=== PATIENT | female | born 1960 | race Caucasian/White ===

== ENCOUNTER 2020-07-30 19:01 | Outpatient (REF) | payer OTHER, SELFPAY | END 2020-07-30 19:02 | disposition home or self-care (01) | LOC: HO.LNP 19:01 | PROVIDERS: Visit Provider Family Medicine | DX: Z20.822 Contact with and (suspected) exposure to COVID-19 (principal); R05 Cough | CPT/HCPCS: U0003; U0005 ==

== ENCOUNTER 2020-11-24 12:42 | Outpatient (REF) | payer OTHER, SELFPAY ==
[2020-11-24 13:53] LABS: MANUAL DIFF FLAG NO
[2020-11-24 13:59] LABS: Basophils Percent Auto 0.4 % (0-2); Eosinophils Absolute Auto 0.3 X10*3/uL (0.0-0.4); Eosinophils Percent Auto 2.7 % (0-4); Hematocrit 42.6 % (37-47); Hemoglobin 14.3 g/dl (12.0-16.0); Imm Gran Abs Auto 0.04 X10*3/uL (0.00-0.03); Imm Gran Pct Auto 0.4 % (0.0-0.4); Lymphocytes Absolute Auto 3.1 X10*3/uL (1.2-4.9); Lymphocytes Percent Auto 33.4 % (20-40); Mean Corpuscular HGB Conc 33.6 g/dl (31.0-35.0); Mean Corpuscular Volume 95.3 fL (80-98); Mean Platelet Volume 11.7 fL (9.4-12.3); Monocytes Absolute Auto 0.8 X10*3/uL (0.1-1.2); Neutrophils Absolute Auto 5.1 X10*3/uL (2.0-8.3); Neutrophils Percent Auto 55.1 % (45-73); Platelet Count 260 X10*3/uL (160-400); Red Blood Count 4.47 X10*6/uL (4.20-5.50); Red Cell Distribution Width 12.4 % (11.0-16.0); White Blood Count 9.3 X10*3/uL (4.8-10.8)
[2020-11-24 14:15] LABS: Alanine Aminotransferase 58 U/L (0-31); Albumin Level 4.4 g/dL (3.5-5.0); Alkaline Phosphatase 87 U/L (39-117); Anion Gap 11 (12-20); Aspartate Amino Transferase 33 U/L (5-31); Bilirubin Total 0.6 mg/dL (0.0-1.0); Blood Urea Nitrogen 19 mg/dL (9-16); Calcium 9.7 mg/dL (8.4-10.2); Carbon Dioxide 27 mmol/L (22-29); Chloride 107 mmol/L (96-108); Cholesterol 211 mg/dL; Estimated Glomerular Filt Rate > 60; Glucose Fasting 120 mg/dL (60-99); HDL Cholesterol 35 mg/dL; LDL Cholesterol Calculated 137 mg/dl; Potassium 4.2 mmol/L (3.3-5.1); Sodium 141 mmol/L (135-145); Triglycerides 198 mg/dL
[2020-11-24 14:38] LABS: TSH reflex Free T4 1.47 uIU/mL (0.32-4.0)
== END 2020-11-24 12:43 | disposition home or self-care (01) ==
LOC: HO.WFDLDS 12:42
PROVIDERS: Visit Provider Family Medicine
DX: Z00.00 Encounter for general adult medical examination without abnormal findings (principal)
CPT/HCPCS: 36415; 80053; 80061; 84443; 85025

== ENCOUNTER 2021-12-07 16:23 | Outpatient (REF) | payer OTHER, SELFPAY ==
[2021-12-08 12:57] LABS: Influenza A PCR NEGATIVE (Negative); Influenza B PCR NEGATIVE (Negative); Resp Syncy Virus RNA Qual PCR NEGATIVE (Negative); SARS COV2 PCR INHOUSE NEGATIVE (Negative)
== END 2021-12-07 16:24 | disposition home or self-care (01) ==
LOC: HO.LAB 16:23
PROVIDERS: Visit Provider Family Medicine
DX: J02.9 Acute pharyngitis, unspecified (principal); Z20.822 Contact with and (suspected) exposure to COVID-19
CPT/HCPCS: 0241U

== ENCOUNTER 2021-12-08 11:20 | Outpatient (REF) | payer OTHER, SELFPAY | END 2021-12-08 11:21 | disposition home or self-care (01) | LOC: HO.LNP 11:20 | PROVIDERS: Visit Provider Family Medicine | DX: Z13.89 Encounter for screening for other disorder (principal) ==

== ENCOUNTER 2021-12-10 11:17 | Outpatient (REF) | payer OTHER, SELFPAY ==
[2021-12-10 11:35] LABS: MANUAL DIFF FLAG NO
[2021-12-10 12:10] LABS: Basophils Absolute Auto 0.1 X10*3/uL (0.0-0.2); Basophils Percent Auto 0.3 % (0-2); Eosinophils Absolute Auto 0.1 X10*3/uL (0.0-0.4); Eosinophils Percent Auto 0.7 % (0-4); Hematocrit 42.4 % (37.0-47.0); Hemoglobin 14.5 g/dl (12.0-16.0); Imm Gran Abs Auto 0.09 X10*3/uL (0.00-0.03); Imm Gran Pct Auto 0.6 % (0.0-0.4); Lymphocytes Absolute Auto 2.4 X10*3/uL (1.2-4.9); Lymphocytes Percent Auto 16.4 % (20-40); Mean Corpuscular HGB Conc 34.2 g/dl (31.0-35.0); Mean Corpuscular Hemoglobin 32.3 pg (27.0-33.0); Mean Corpuscular Volume 94.4 fL (80.0-98.0); Mean Platelet Volume 10.5 fL (9.4-12.3); Monocytes Absolute Auto 1.4 X10*3/uL (0.1-1.2); Monocytes Percent Auto 9.8 % (2-11); Neutrophils Absolute Auto 10.5 x10*3/uL (2.0-8.3); Neutrophils Percent Auto 72.2 % (45-73); Platelet Count 292 X10*3/uL (160-400); Red Blood Count 4.49 X10*6/uL (4.20-5.50); Red Cell Distribution Width 12.3 % (11.0-16.0); White Blood Count 14.5 X10*3/uL (4.8-10.8)
[2021-12-10 12:18] LABS: Appearance Urine Cloudy; Color Urine Yellow; Glucose Urine UA Negative (Negative); Leukocyte Esterase Urine Negative (Negative); Nitrite Urine Negative (Negative); PH 6.5 (5.0-9.0); Specific Gravity - Urine 1.015 (1.005-1.025); Urine Blood Negative (Negative); Urine Ketones Negative (Negative); Urine Protein Trace mg/dL (Neg-Trace)
[2021-12-10 12:45] LABS: Alanine Aminotransferase 40 U/L (0-31); Albumin Level 4.3 g/dL (3.5-5.0); Alkaline Phosphatase 86 U/L (39-117); Anion Gap 17 (12-20); Aspartate Amino Transferase 27 U/L (5-31); Bilirubin Total 0.9 mg/dL (0.0-1.0); Blood Urea Nitrogen 11 mg/dL (9-16); Calcium 9.6 mg/dL (8.4-10.2); Carbon Dioxide 27 mmol/L (22-29); Chloride 100 mmol/L (96-108); Estimated Glomerular Filt Rate > 60; Glucose Random 122 mg/dL (60-115); Potassium 3.6 mmol/L (3.3-5.1); Sodium 140 mmol/L (135-145)
== END 2021-12-10 11:18 | disposition home or self-care (01) ==
LOC: HO.LAB 11:17
PROVIDERS: PCP Family Medicine; Visit Provider Family Medicine
DX: Z00.00 Encounter for general adult medical examination without abnormal findings (principal); R53.83 Other fatigue
CPT/HCPCS: 36415; 80053; 81003; 85025

== ENCOUNTER 2022-12-07 10:25 | Outpatient (AMB) | payer OTHER, SELFPAY ==
[2022-12-07 10:29] VITALS: BP 128/78; PULSE 79; RESP 14; TEMP 37.1; O2SAT 98; BMI 27.1
--- NOTE | 2022-12-07 10:29 | A.OFFPC_ITS ---
Vital Signs 12/07/22 10:29 Height 5 ft 4 in Weight 158 lb BMI 27.1 BP 128/78 Blood Pressure Location Lt brachial Position Sitting Respiration 14 Pulse 79 Pulse Source Pulse Oximeter Temp 98.7 F Temp Source Oral Pulse Oximetry (%) 98 Oxygen Delivery Method Room Air Intake Visit Reasons: f/u hypertension Intake Note: Patient is here for hypertension and she expresses she is under stress at home. Overnight Stocker Required: No Accompanied by: Self / Same As Patient Allergies erythromycin base Adverse Reaction (Mild, Verified 12/07/22 10:36) diarrhea Tobacco use date assessed: 12/07/22 Dental Screening Dental Screen Date: 12/07/22 Did you have a dental visit in the last 12 months?: Yes Did you have a dental problem in the last 6 months where you did not have access to dental care?: No Was dental information given to patient?: Patient has dentist HPI f/u hypertension HPI Details 62 y/o female presents to f/u hypertensi on. Blood pressure today 128/78. She is on amlodipine 5mg and lisinopril-HCTZ 20- 25mg daily. Pt reports ongoing stressors. She does not have a therapist. [facility] Medical History Anxiety Depression History of breast cancer Hypertension Surgical History H/O bilateral mastectomy History of cholecystectomy History of knee surgery History of tonsillectomy S/P lumpectomy of breast Family History Daughter Mental health disorder Breast cancer Sister Mental health disorder Breast cancer Lung cancer Myocardial infarction Father CAD (coronary artery disease) Myocardial infarction Mother Breast cancer Other Substance abuse Social History (Updated 12/07/22 @ 10:41 by Leah Callahan CMA) Household Members: Children Housing: House Are you a primary lawn care professional to a significant other at home: No Do you presently have visiting nurse or other home services: No 75 years or older and lives alone: No Alcohol intake: current Alcohol intake frequency: holidays/special occasions only Alcohol type: wine Patient Tobacco Use Status: Former Tobacco user Tobacco use type: Cigarette Cigarette Packs Per Day: 0.5 Cigarettes Per Day: 10 Years Smoked: 2 e-Cigarette/Vaping Use: Never Used Second Hand Smoke Exposure: No service: No Current occupational status: retired Current occupational exposures/hazards: No Sexual orientation: Unable to collect Gender identity: Unable to collect Cognitive needs: No Hearing needs: No Vision needs: No Review of Systems Const Denies chills, Denies fatigue, Denies fever(s), Denies headache(s) and Denies weakness ENT Denies dizziness and Denies headache(s) Card Denies chest pain, Denies lightheadedness, Denies dyspnea and Denies other (Palpitations) Resp Denies cough, Denies dyspnea, Denies wheezing and Denies other ( shortness of breath) Musc Denies numbness and Denies tingling Neuro Denies dizziness, Denies headache(s), Denies numbness, Denies tingling, Denies paresthesias and Denies weakness Psych Reports anxiety and Reports depression Endo Denies fatigue Aller/Immun Denies wheezing Physical exam (Primary Care) Vital Signs: Last Vital Signs Temp 98.7 F 12/07/22 10:29 Pulse 79 12/07/22 10:29 Resp 14 12/07/22 10:29 BP 128/78 12/07/22 10:29 Pulse Ox 98 12/07/22 10:29 Oxygen Delivery Method Room Air 12/07/22 10:29 BMI result Body Mass Index 27.1 Tobacco/Smoking Status: Tobacco use Status Tobacco use date assessed 12/07/22 12/07/22 10:41 Patient Tobacco Use Status Former Tobacco user 12/07/22 10:41 Tobacco use type Cigarette 12/07/22 10:41 e-Cigarette/Vaping Use Never Used 12/07/22 10:41 Const General: no acute distress and well developed Nutritional Appearance: well nourished Orientation/consciousness: patient oriented x3 HENMT Head: Yes normocephalic and Yes atraumatic Eyes General: appearance normal, both eyes and all related structures Pupils: Equal, round and reactive pupils present EOM: EOMs intact bilaterally Resp Effort & Inspection: normal respiratory effort Auscultation: clear to auscultation bilaterally Cardio Rate: regular rate Rhythm: regular rhythm Heart sounds: S1 normal heart sound present, S2 normal heart sound present, no gallops, no murmurs and no rubs Neuro General: patient oriented x3 and gait normal Cranial nerves: Yes Equal, round and reactive pupils present Psych Affect: normal affect Assessment and Plan Assessment & Plan (1) Hypertension: Comment: Goal is less than 130/80. Ideally less than 120/70. Patient has thoracic aneurysm at 4.1 cm Code(s): I10 - Essential (primary) hypertension Plan: Blood?pressure?less?than?130/80?and?patie nt?has?a?history?of?thoracic?aortic?aneurysm?at?4.1?cm.??[place]?goal?is?less?than ?120/70 Will?add?a?small?amount?of?metoprolol?which?may?also?help?with?her?anxiety?and?r esultant?palpitations. Will?follow-up?in?a?month (2) Thoracic aortic aneurysm: Code(s): I71.20 - Thoracic aortic aneurysm, without rupture, unspecified Plan: As?above,?ideally?aiming?for?a?blood?pressure?less?than?120/70 Continue?to?follow-up?with?Cardiology?as?recommended (3) Depression with anxiety: Code(s): F41.8 - Other specified anxiety disorders Plan: Some?anxiety?and?depression.??She?notes?that?her?anx iety?has?been?worse?lately?as?her?daughter?passed?away?and?today?is?her?birthday . She?also?has?stressors?as?she?is?taking?care?of?the?young?children. We?discussed?consideration?of?a?therapist?from?whi ch?she?has?benefit?from?in?the?past.??She?says?she?will?think?about?this. (4) Palpitations: Code(s): R00.2 - Palpitations Plan: Will?trial?a?low?dose?of?metoprolol?which?may?help?with?palpitations?which?are?l ikely?secondary?to?her?anxiety. Medications: New metoprolol succinate ER 12.5 mg (1/2 x 25 mg) PO DAILY 15 tabs 1RF 30 days Coding Level of Care Code Est Pt Level 4 (90039) Diagnoses Hypertension I10 Thoracic aortic aneurysm I71.20 Depression with anxiety F41.8 Palpitations R00.2
== END 2022-12-07 11:19 | disposition home or self-care (01) ==
PROVIDERS: PCP Family Medicine; Visit Provider Family Medicine
DX: I10 Essential (primary) hypertension (principal); I71.20 Thoracic aortic aneurysm, without rupture, unspecified; F41.8 Other specified anxiety disorders; R00.2 Palpitations
CPT/HCPCS: 99214

== ENCOUNTER 2022-12-23 10:31 | Outpatient (AMB) | payer OTHER, SELFPAY ==
[2022-12-23 10:35] VITALS: BP 130/80; PULSE 77; O2SAT 98; BMI 25.6
--- NOTE | 2022-12-23 10:35 | A.OFFPC_ITS ---
Vital Signs 12/23/22 10:35 Height 5 ft 4 in Weight 149 lb BMI 25.6 BP 130/80 Blood Pressure Location Lt brachial Pulse 77 Pulse Source Pulse Oximeter Pulse Oximetry (%) 98 Oxygen Delivery Method Room Air Intake Visit Reasons: f/u hypertension Intake Note: Patient is here for hypertension today. Allergies erythromycin base Adverse Reaction (Mild, Verified 12/23/22 10:37) diarrhea Tobacco use date assessed: 12/23/22 HPI f/u hypertension HPI Details 62 y/o female presents to f/u hypertensi on with hx of thoracic aortic aneurysm at 4.1cm. Also f/u anxiety/depression with some palpitations. Had added metoprolol which may also help with palpitations and anxiety. Goal less than 120/70 according to Cardiology. Blood pressure today 118/68. She is on lisinopril-HCTZ 20-25mg, amlodipine 5mg and metoprolol 12.5mg daily. Blood pressure on second check is 130/80. Pt reports anxiety is still high. She does not have a therapist and states she does not have time for one. She notes she has not been getting much palpitations. She is on sertraline 50mg daily. [facility] Medical History History of breast cancer Anxiety Depression Hypertension Surgical History S/P lumpectomy of breast H/O bilateral mastectomy History of knee surgery History of cholecystectomy History of tonsillectomy Family History Daughter Mental health disorder Breast cancer Sister Mental health disorder Breast cancer Lung cancer Myocardial infarction Father CAD (coronary artery disease) Myocardial infarction Mother Breast cancer Other Substance abuse Social History Household Members: Children Housing: House Are you a primary care transitions manager to a significant other at home: No Do you presently have visiting nurse or other home services: No 75 years or older and lives alone: No Alcohol intake: current Alcohol intake frequency: holidays/special occasions only Alcohol type: wine Patient Tobacco Use Status: Former Tobacco user Tobacco use type: Cigarette Cigarette Packs Per Day: 0.5 Cigarettes Per Day: 10 Years Smoked: 2 e-Cigarette/Vaping Use: Never Used Second Hand Smoke Exposure: No service: No Current occupational status: retired Current occupational exposures/hazards: No Sexual orientation: Unable to collect Gender identity: Unable to collect Cognitive needs: No Hearing needs: No Vision needs: No Review of Systems Const Denies chills, Denies fatigue, Denies fever(s), Denies headache(s) and Denies weakness ENT Denies dizziness and Denies headache(s) Card Denies chest pain, Denies lightheadedness, Denies dyspnea and Denies other (Palpitations) Resp Denies cough, Denies dyspnea, Denies wheezing and Denies other ( shortness of breath) Musc Denies numbness and Denies tingling Neuro Denies dizziness, Denies headache(s), Denies numbness, Denies tingling, Denies paresthesias and Denies weakness Psych Reports anxiety and Denies depression Endo Denies fatigue Aller/Immun Denies wheezing Physical exam (Primary Care) Vital Signs: Last Vital Signs Pulse 77 12/23/22 10:35 BP 118/68 12/23/22 10:35 Pulse Ox 98 12/23/22 10:35 Oxygen Delivery Method Room Air 12/23/22 10:35 BMI result Body Mass Index 25.6 Tobacco/Smoking Status: Tobacco use Status Tobacco use date assessed 12/23/22 12/23/22 10:41 Patient Tobacco Use Status Former Tobacco user 12/23/22 10:41 Tobacco use type Cigarette 12/23/22 10:41 e-Cigarette/Vaping Use Never Used 12/23/22 10:41 Const General: no acute distress and well developed Nutritional Appearance: well nourished Orientation/consciousness: patient oriented x3 HENMT Head: Yes normocephalic and Yes atraumatic Eyes General: appearance normal, both eyes and all related structures Pupils: Equal, round and reactive pupils present EOM: EOMs intact bilaterally Resp Effort & Inspection: normal respiratory effort Auscultation: clear to auscultation bilaterally Cardio Rate: regular rate Rhythm: regular rhythm Heart sounds: S1 normal heart sound present, S2 normal heart sound present, no gallops, no murmurs and no rubs Neuro General: patient oriented x3 and gait normal Cranial nerves: Yes Equal, round and reactive pupils present Psych Affect: normal affect Office Procedures Flu Questionnaire Does the patient have a severe egg allergy?: No Does the patient have severe life threatening allergies?: No Does the patient have a fever or illness today?: No Has the patient ever had Guillain-[place] Syndrome?: No Has the patient ever had any past reaction to a flu shot?: No Immunizations flu vacc [id number] 6mos up(PF) 60 mcg(15 mcgx4)/0.5 mL IM syringe Performing Provider: Douglas Bain MD Performing Location: [facility] Family Medicine Documented (not given) by: Jovita Quiroga CMA on 12/23/22 10:50 Reason Not Given: Received Previously Assessment and Plan Assessment & Plan (1) Hypertension: Comment: Goal is less than 130/80. Ideally less than 120/70. Patient has thoracic aneurysm at 4.1 cm Code(s): I10 - Essential (primary) hypertension Plan: Blood? pressure?today?was?130/80?and?Cardiology?is?recommending?that?she?keep?it?ideall y?below?120/70?due?to?aortic?aneurysm Will?increase?her?metoprolol?succinate?from?12.5?mg?daily?to?12.5?mg?b.i.d. She?notes?this?is?already?helping?with?palpitations (2) Thoracic aortic aneurysm: Code(s): I71.20 - Thoracic aortic aneurysm, without rupture, unspecified Plan: Follow-up?with?Cardiology (3) Depression with anxiety: Code(s): F41.8 - Other specified anxiety disorders Plan: She?is?on?sertraline?50?mg?daily. Has?had?significant?stressors?including?taking?care?of?her?children?and?her?s ister Offer?to?increase?sertraline?to?75?mg?daily?but?patient?declines?for?now. Has?difficulty?finding?the?time?for?a?therapist (4) Palpitations: Code(s): R00.2 - Palpitations Plan: Improved?on?metoprolol Orders: Orders Influenza [id number] Immunization Today Z23 - Encounter for immunization Medications: Changed From metoprolol succinate ER 12.5 mg (1/2 x 25 mg) PO DAILY 30 days 15 tabs 1RF To metoprolol succinate ER 12.5 mg (1/2 x 25 mg) PO BID 30 days 30 tabs 1RF Coding Level of Care Code Est Pt Level 4 (49667) Diagnoses Hypertension I10 Thoracic aortic aneurysm I71.20 Depression with anxiety F41.8 Palpitations R00.2
== END 2022-12-23 11:17 | disposition home or self-care (01) ==
PROVIDERS: PCP Family Medicine; Visit Provider Family Medicine
DX: I10 Essential (primary) hypertension (principal); I71.20 Thoracic aortic aneurysm, without rupture, unspecified; F41.8 Other specified anxiety disorders; R00.2 Palpitations
CPT/HCPCS: 99214

== ENCOUNTER 2023-03-25 10:52 | Outpatient (AMB) | payer OTHER, SELFPAY ==
--- NOTE | 2023-03-25 10:56 | MHC.PC.OV ---
Vital Signs 03/25/23 10:57 Height 5 ft 4 in Weight 146 lb 8 oz BMI 25.1 BP 139/85 Blood Pressure Location Lt brachial Pulse 61 Pulse Oximetry (%) 98 Oxygen Delivery Method Room Air Intake Visit Reasons: f/u hypertension, anxiety/depression Intake Note: Patient is here to follow up on hypertension, anxiety, and depression. Allergies erythromycin base Adverse Reaction (Mild, Verified 03/25/23 10:59) diarrhea Tobacco use date assessed: 03/25/23 Dental Screening Dental Screen Date: 03/25/23 Did you have a dental visit in the last 12 months?: Yes Did you have a dental problem in the last 6 months where you did not have access to dental care?: No Was dental information given to patient?: Patient has dentist HPI f/u hypertension, anxiety/depression HPI Details 62 y/o female presents to f/u hypertension, anxiety/depression with palpitations. Hx of thoracic aortic aneurysm. Pt reports mood feels a bit more steady/stable but notes ongoing stressors with her kids. [facility] Medical History History of breast cancer Anxiety Depression Hypertension Surgical History S/P lumpectomy of breast H/O bilateral mastectomy History of knee surgery History of cholecystectomy History of tonsillectomy Family History Daughter Mental health disorder Breast cancer Sister Mental health disorder Breast cancer Lung cancer Myocardial infarction Father CAD (coronary artery disease) Myocardial infarction Mother Breast cancer Other Substance abuse Social History Household Members: Children Housing: House Are you a primary acute care physician to a significant other at home: No Do you presently have visiting nurse or other home services: No 75 years or older and lives alone: No Alcohol intake: current Alcohol intake frequency: holidays/special occasions only Alcohol type: wine Patient Tobacco Use Status: Former Tobacco user Tobacco use type: Cigarette Cigarette Packs Per Day: 0.5 Cigarettes Per Day: 10 Years Smoked: 2 e-Cigarette/Vaping Use: Never Used Second Hand Smoke Exposure: No service: No Current occupational status: retired Current occupational exposures/hazards: No Sexual orientation: Unable to collect Gender identity: Unable to collect Cognitive needs: No Hearing needs: No Vision needs: No Questionnaire PHQ-9 Over the last 2 weeks, how often have you been bothered by any of the following problems? 1. Little interest or pleasure in doing things: not at all 2. Feeling down, depressed, or hopeless: not at all 3. Trouble falling or staying asleep, or sleeping too much: not at all 4. Feeling tired or having little energy: not at all 5. Poor appetite or overeating: not at all 6. Feeling bad about yourself - or that you are a failure or have let yourself or your family down: not at all 7. Trouble concentrating on things, such as reading the newspaper or watching television: not at all 8. Moving or speaking so slowly that other people could have noticed. Or the opposite - being so fidgety or restless that you have been moving around a lot more than usual: not at all 9. Thoughts that you would be better off or of hurting yourself in some way: not at all Total score: 0 Depression Screening Interpretation: Negative Depression Screening Done: Yes 64196 - PHQ-9 Billing: Yes Source: Developed by Drs. Jhony Ann, Yessica Roldan, Rafael Camacho and colleagues, with an educational arian from [employer]. Thrive Questionnaire Date Thrive assessed: 03/25/23 I am a: Patient What is your living situation today?: I have a steady place to live Within the past 12 months, did the food you bought not last and you didn't have the money to get more?: Never true Within the past 12 months, did you worry whether your food would run out before you got money to buy more?: Never true Do you have trouble paying for medicines?: No Do you have trouble getting transportation to medical appointments?: No Do you have trouble paying your heating and electricity bill?: No Do you have trouble taking care of your child, family member or friend?: No Do you have trouble with day-to-day activities such as bathing, preparing meals, shopping, managing finances, etc.?: No Are you currently unemployed and looking for a job?: No Are you interested in more education?: No THRIVE Score: 0 AUDIT C Alcohol Use Questionnaire (AUDIT-C) 1. How often do you have a drink containing alcohol?: Monthly or less 2. How many drinks containing alcohol do you have on a typical day when you are drinking?: 1 or 2 3. How often do you have six or more drinks on one occasion?: Never Total Score: 1 INA-7 AMB Questionnaire INA-7 Date INA - 7 assessed: 03/25/23 Feeling nervous, anxious, or on edge: 1 = Several days Not being able to stop or control worryin = Several days Worrying too much about different things: 1 = Several days (Her children) Trouble relaxin = Not at all Being so restless that it is hard to sit still: 0 = Not at all Becoming easily annoyed or irritable: 0 = Not at all Feeling afraid as if something awful might happen: 0 = Not at all Total INA-7 score (0-4 normal; 5-9 mild; 10-14 moderate; 15-21 severe): 3 Source: Developed by Drs. Jhony Ann, Yessica Roldan, Rafael Camacho and colleagues, with an educational arian from [employer]. INA-7 Assessment Billing INA-7 Assessment Tool: INA-7 Assessment 07533 Physical exam (Primary Care) Vital Signs: Last Vital Signs Pulse 61 03/25/23 10:57 BP 139/85 03/25/23 10:57 Pulse Ox 98 03/25/23 10:57 Oxygen Delivery Method Room Air 03/25/23 10:57 BMI result Body Mass Index 25.1 Tobacco/Smoking Status: Tobacco use Status Tobacco use date assessed 03/25/23 03/25/23 11:00 Patient Tobacco Use Status Former Tobacco user 03/25/23 10:59 Tobacco use type Cigarette 03/25/23 10:59 e-Cigarette/Vaping Use Never Used 03/25/23 10:59 PHQ-9: PHQ-9 Score PHQ-9: Total score 0 03/25/23 11:15 Depression Screening Interpretation: Negative Thrive Assessment: Date of Thrive Assessment Date Thrive assessed 03/25/23 03/25/23 11:10 Assessment and Plan Assessment & Plan (1) Hypertension: Comment: Goal is less than 130/80. Ideally less than 120/70. Patient has thoracic aneurysm at 4.1 cm Code(s): I10 - Essential (primary) hypertension Plan: Blood?pressure?is?still?too?high?for?patient?with?thoracic?aneurysm; recommended?goal?is?less?than?120/70 She?is?now?on?metoprolol?daily?dose?of?25?mg.??Heart?rate?is?at?lower?end?of?normal. Also?taking?lisinopril-hydrochlorothiazide Had?prescribed?amlodipine?5?mg?daily?which?was?on?her?med?list?but?she?says?she?has?not?been?taking?this. She?will?start?amlodipine?5?mg?daily?and?continue?her?other?medications?as?prescribed.??Call?for?any?problems (2) Thoracic aortic aneurysm: Code(s): I71.20 - Thoracic aortic aneurysm, without rupture, unspecified Plan: Currently?stable Blood?pressure?is?too?high?and?we?are?addressing?this-see?above Follow-up?with?Cardiology?as?recommended (3) Depression with anxiety: Code(s): F41.8 - Other specified anxiety disorders Plan: Patient?notes?that?mood?is?improving. Continue?sertraline (4) Screening for colon cancer: Code(s): Z12.11 - Encounter for screening for malignant neoplasm of colon Plan: Patient?notes?that?she?is?overdue?for?colonoscopy?and?history?of?polyps?with?recommended?follow-up?of?3?years. Referred?to?GI (5) Colon polyp: Code(s): K63.5 - Polyp of colon Plan: As?above,?referred?to?GI Orders: Referrals Gastroenterology Referral K63.5 - Polyp of colon, Z12.11 - Encounter for screening for malignant neoplasm of colon Medications: Refilled metoprolol succinate ER 12.5 mg (1/2 x 25 mg) PO BID 30 tabs 1RF 30 days amlodipine 5 mg PO DAILY 30 tabs 1RF 30 days lisinopril-hydrochlorothiazide 20-25 mg 1 tab PO DAILY 90 tabs 3RF 90 days sertraline 50 mg PO DAILY 90 tabs 2RF 90 days Coding Level of Care Code Est Pt Level 4 (27297) Diagnoses Hypertension I10 Thoracic aortic aneurysm I71.20 Depression with anxiety F41.8 Screening for colon cancer Z12.11 Colon polyp K63.5 Additional Codes INA-7 Assessment Billing - INA-7 Assessment Tool: INA-7 Assessment [id number] ([id number])
[2023-03-25 10:57] VITALS: BP 139/85; PULSE 61; O2SAT 98; BMI 25.1
== END 2023-03-25 11:36 | disposition home or self-care (01) ==
PROVIDERS: PCP Family Medicine; Visit Provider Family Medicine
DX: I10 Essential (primary) hypertension (principal); I71.20 Thoracic aortic aneurysm, without rupture, unspecified; F41.8 Other specified anxiety disorders; Z12.11 Encounter for screening for malignant neoplasm of colon; K63.5 Polyp of colon
CPT/HCPCS: 99214

== ENCOUNTER 2023-05-04 12:41 | Outpatient (AMB) | payer OTHER, SELFPAY ==
--- NOTE | 2023-05-04 12:52 | MHC.OFFVIS ---
Intake Vital Signs 05/04/23 12:54 Height 5 ft 4 in Weight 145 lb 8.081 oz BMI 25.0 BP 125/77 Blood Pressure Location Lt brachial Position Sitting Pulse 77 Pulse Source Pulse Oximeter Pulse Oximetry (%) 99 Oxygen Delivery Method Room Air Intake Visit Reasons: Pegram screening Information Interpreted: non-clinical & clinical Accompanied by: Self / Same As Patient Allergies erythromycin base Adverse Reaction (Mild, Verified 05/04/23 12:55) diarrhea HPI Pegram screening HPI Details 62 year old? female with past medical history of hypertension, lymphadenopathy, celiac diagnosed on upper endoscopy, gastroparesis, history of cholecystectomy, history of breast CA, status post bilateral mastectomy is here today for pre colonoscopy screening.? Patient was sent to us by her PCP.? Patient had upper endoscopy and colonoscopy done in the past. Colonoscopy was done almost 10 years ago. Patient was told that she had 1 polyp. Patient was supposed to return for colonoscopy every 3 years, however patient reports that her daughter and then soon after her and now she is taking care of her 2 grandchildren. Patient does admit to do under a lot of stress. Patient reports occasional palpitations, shortness or breath and chest pressure. She is followed by [facility] and had echo last year that showed dilation of ascending aorta up to 4.3 cm. Patient also has thoracic aorta aneurysm that has been watched. Patient wishes to change her care to [place] so all her providers are in his same system. Will refer to Cardiology for risk stratification before the procedure. Patient has repeat echo here at [facility] in June. Patient reports that when she had her last endoscopy she was diagnosed with celiac disease and gastroparesis. Patient is on gluten free diet.? Denies any family history of gastrointestinal disease or cancer.? Denies history of difficulty with sedation or anesthesia in the past.? Negative for history of sleep apnea.? Denies any history of cardiac, renal, pulmonary, or hepatic disease.?? No history of infectious? diseases like hepatitis A, B, C, HIV or tuberculosis.? Patient is not on any anticoagulation therapy. [facility] Medical History (Updated 05/04/23 @ 13:09 by Ursula Peacock [facility]) Celiac disease History of breast cancer Anxiety Depression Hypertension Surgical History S/P lumpectomy of breast H/O bilateral mastectomy History of knee surgery History of cholecystectomy History of tonsillectomy Family History Daughter Mental health disorder Breast cancer Sister Mental health disorder Breast cancer Lung cancer Myocardial infarction Father CAD (coronary artery disease) Myocardial infarction Mother Breast cancer Other Substance abuse Social History Household Members: Children Housing: House Are you a primary field care coordinator to a significant other at home: No Do you presently have visiting nurse or other home services: No 75 years or older and lives alone: No Alcohol intake: current Alcohol intake frequency: holidays/special occasions only Alcohol type: wine Patient Tobacco Use Status: Former Tobacco user Tobacco use type: Cigarette Cigarette Packs Per Day: 0.5 Cigarettes Per Day: 10 Years Smoked: 2 e-Cigarette/Vaping Use: Never Used Second Hand Smoke Exposure: No service: No Current occupational status: retired Current occupational exposures/hazards: No Sexual orientation: Unable to collect Gender identity: Unable to collect Cognitive needs: No Hearing needs: No Vision needs: No Review of Systems Const Denies weight gain and Denies weight loss ENT Reports no additional complaints, Denies dysphagia and Denies odynophagia Card Reports no additional complaints Resp Reports no additional complaints GI Denies abdominal pain, Denies belching, Denies melena, Denies bloating, Denies change in bowel habits, Denies dysphagia, Denies excessive flatus, Denies dyspepsia, Reports heartburn (Occasional), Denies diarrhea, Denies loose stools, Denies nausea, Denies odynophagia and Denies vomiting Musc Reports no additional complaints Neuro Reports no additional complaints Psych Reports no additional complaints Endo Reports no additional complaints Physical Exam Const General: healthy appearing, no acute distress and well developed Nutritional Appearance: well nourished Orientation/consciousness: patient oriented x3 Resp Effort & Inspection: normal respiratory effort, able to speak in complete sentences, no tracheal deviation and symmetric chest movement Auscultation: clear to auscultation bilaterally Cardio Rate: regular rate GI Inspection: Yes normal to inspection and No distended Palpation (GI): Soft to palpation, not firm, nontender and No hepatosplenomegaly present Auscultation: normal bowel sounds General: Yes no CVA tenderness Back/Spine/Pelvis Back: no CVA tenderness Skin General skin exam: elasticity normal, turgor normal and dry skin Neuro General: patient oriented x3 Psych Appearance: grossly normal Mental Status: mental status grossly normal Assessment & Plan Assessment & Plan (1) Screening for colon cancer: Code(s): Z12.11 - Encounter for screening for malignant neoplasm of colon (2) Celiac disease: Code(s): K90.0 - Celiac disease (3) Palpitations: Code(s): R00.2 - Palpitations (4) GERD (gastroesophageal reflux disease): Code(s): K21.9 - Gastro-esophageal reflux disease without esophagitis Qualifiers: Esophagitis presence: esophagitis presence not specified Qualified Code(s): K21.9 - Gastro-esophageal reflux disease without esophagitis Plan Patient reports occasional acid reflux and she uses Tums. History of celiac disease. Patient is on a very strict gluten free diet will send for transglutaminase to see adherence. Will send patient for upper endoscopy. Denies any issues with anesthesia in the past.? Denies any history of sleep apnea.? No history infectious diseases in the past or present.? Not on any anticoagulation therapy.? No family of colon cancer.? Patient denies melena, hematochezia, unintentional weight loss or ribbon like stools.? Referral to Cardiology for risk stratification before procedure. Patient has echo scheduled for June. Appointment with Dr. Conteh was scheduled for July. Discussed at length the pre-procedure,? prep, diet & medications as well as what to expect prior, during and after the procedure.?? Stressed the importance of good bowel prep. ?Recommended the use of Vaseline or Calmoseptine OTC & baby wipes with bowel movements to promote comfort.? ?Patient verbalizes understanding and agrees to plan of care.? She was given the opportunity to ask questions and all questions answered.? We will see her after the procedure.? Orders: Orders Transglutaminase Ab IgG Today R10.9 - Unspecified abdominal pain Transglutaminase IgA Today R10.9 - Unspecified abdominal pain Referrals Cardiology Referral Z01.810 - Encounter for preprocedural cardiovascular examination Medications: New bisacodyl (Dulcolax (bisacodyl)) take 4 tabs at noon the day before your colonoscopy 20 mg (4 x 5 mg) PO ONCE 1 day 4 tabs 0RF Z12.11 - Encounter for screening for malignant neoplasm of colon polyethylene glycol 3350 (Miralax) As directed by gastroenterology department at [facility] 238 grams PO ONCE 238 grams 0RF Z12.11 - Encounter for screening for malignant neoplasm of colon Coding Level of Care Code New Pt Level 4 (93626) Diagnoses Screening for colon cancer Z12.11 Celiac disease K90.0 Palpitations R00.2 Gastroesophageal reflux disease, unspecified whether esophagitis present K21.9 Esophagitis presence: esophagitis presence not specified Time Spent (min) 45 Comment 30 minutes spent with patient and additional 15 minutes spent reviewing her records
[2023-05-04 12:54] VITALS: BP 125/77; PULSE 77; O2SAT 99; BMI 25.0
== END 2023-05-04 13:42 | disposition home or self-care (01) ==
PROVIDERS: PCP Family Medicine; Visit Provider Nurse Practitioner Family
DX: Z12.11 Encounter for screening for malignant neoplasm of colon (principal); K90.0 Celiac disease; R00.2 Palpitations; K21.9 Gastro-esophageal reflux disease without esophagitis; Z01.818 Encounter for other preprocedural examination
CPT/HCPCS: 99204

== ENCOUNTER → 2023-05-04 12:41 | Outpatient (BNVA) | payer OTHER, SELFPAY | PROVIDERS: PCP Family Medicine; Visit Provider Nurse Practitioner Family | DX: Z12.11 Encounter for screening for malignant neoplasm of colon (principal); K90.0 Celiac disease; K21.9 Gastro-esophageal reflux disease without esophagitis; R00.2 Palpitations | CPT/HCPCS: 99202 ==

== ENCOUNTER → 2023-06-09 12:51 | Outpatient (REF) | payer OTHER, SELFPAY ==
--- NOTE | 2023-06-09 12:54 | CA_ITS ---
Transthoracic Echocardiogram Patient (Last, First, Middle): Sierra Flowers, Gender: Female Date of : 1960 Age: 63 Procedure Date: 06/09/2023 Procedure Type: Transthoracic Echocardiogram Location: OP Height: 162.56 cm Weight: 65.77 kg BSA: 1.71 m2 Heart Rate: 60 bpm BP: 108 / 70 mmHg Double Spindle Shaper Operator: SPENCER Referring MD: Douglas Bain MD Symptoms: I71.20 - Thoracic aortic aneurysm, without rupture, unspecified Study Quality: Adequate ECG Rhythm: Sinus Conclusions: - The left ventricular systolic function is normal. The calculated ejection fraction is 63% by biplane method. - No obvious valvular pathology seen on this study. - There is mild dilatation of the ascending aorta measuring 3.80 cm. Findings Left Ventricle Normal left ventricular cavity size. The left ventricular systolic function is normal. The calculated ejection fraction is 63% by biplane method. There is no evidence of regional wall motion abnormalities. Diastolic function is normal for age. There is mild septal asymmetric hypertrophy. LV peak GLS 18.8%. Right Ventricle Normal right ventricular cavity size and systolic function. Atria Both atria are normal in size. Aortic Valve There is a normal trileaflet aortic valve. There is no aortic valve stenosis. There is no aortic valve regurgitation. Mitral Valve The mitral valve appears normal. There is no mitral valve regurgitation. There is no mitral valve stenosis. Pulmonic Valve The pulmonic valve is likely normal. Tricuspid Valve There is mild tricuspid valve regurgitation. There is no evidence of pulmonary hypertension. Great Vessels The aortic arch is normal in size. There is mild dilatation of the ascending aorta measuring 3.80 cm. Venous The inferior vena cava is normal in size and collapses greater than 50% with inspiration. Pericardium/Pleural There is no evidence of pericardial effusion. Prior Study Comparison No prior study available for comparison. Recommendations, Care & Conclusions No obvious valvular pathology seen on this study. Measurements 2D Linear Measurements IVSd: 1.07 0.6-0.9/0.6-1.0 cm LVIDd: 3.55 3.9-5.3/4.2-5.9 cm LVIDd Index: 2.08 2.4-3.2/2.2-3.1 cm/m2 LVIDs: 1.75 2.0-3.6 cm LVPWd: 0.99 0.7-1.1 cm LA Diam: 2.80 2.7-3.8/3.0-4.0 cm LAIDs Index: 1.64 1.5-2.3 cm/m2 LV Mass: 137.39 67-162/88-224 g LV Mass Index: 80.34 43-95/49-115 g/m2 LVOT Diam: 1.90 3.0+(-)1.3 cm 2D Systolic Function EF 4C: 67.30 >55% EF 2C: 58.50 >55% EF BiP: 63.30 >55% Mitral Valve MV Pk E: 0.92 MV PK A: 0.79 MV Decel Time: 268.00 E/A: 1.20 E'Lateral: 10.00 E'Medial: 4.90 E/E' Med: 18.70 E/E' Lat: 9.20 PHT: 78.00 MVA PHT: 2.82 Decel [place]: 3.42 Aortic Valve AoV Pk Allen: 1.30 AoV Mn Allen: 0.92 AoV VTI: 0.28 AoV Pk Grad: 7.00 Aov Mn Grad: 4.00 ZOHREH Cont.VTI: 2.42 LVOT LVOT Pk Allen: 1.09 LVOT Mn Allen: 0.73 LVOT VTI: 0.24 LVOT Pk Grad: 5.00 LVOT Mn Grad: 3.00 LVOT Diam: 1.90 LVOT Area: 2.84 Diastolic Function MV Pk E: 0.92 MV Pk A: 0.79 E/A: 1.20 E'Medial: 4.90 E/E' Med: 18.70 E' Laterial: 10.00 E/E' Lat: 9.20 Right Ventricle TAPSE (mm): 18.70 TVS' Allen: 11.30 Tricuspid Valve TR Pk Allen: 1.94 TR Pk Grad: 15.00 RA Press: 3.00 RVSP: 18.00 Great Vessels Aorta Sinus of Valsalva: 3.30 2.0-3.5 cm Ao Asc: 3.80 2.1-3.4 cm Ao Arch: 2.90 Pulmonary Valve PV Pk Allen: 0.81 Peak PV Grad: 3.00 Updated in Other Vendor System with Status of Final Jonas Painter MD electronically signed on 06/10/2023 10:46:31 AM with status of Final
== END ==
LOC: HO.CARD 12:51
PROVIDERS: PCP Family Medicine; Visit Provider Family Medicine
DX: I71.20 Thoracic aortic aneurysm, without rupture, unspecified (principal); I10 Essential (primary) hypertension
CPT/HCPCS: 93306; 93356

== ENCOUNTER → 2023-06-09 12:54 | Outpatient (BNV) | payer OTHER, SELFPAY | PROVIDERS: PCP Family Medicine; Visit Provider Internal Medicine | DX: I71.21 Aneurysm of the ascending aorta, without rupture (principal); I36.1 Nonrheumatic tricuspid (valve) insufficiency | CPT/HCPCS: 93306; 93356 ==

== ENCOUNTER 2023-07-18 14:03 | Outpatient (AMB) | payer OTHER, SELFPAY ==
--- NOTE | 2023-07-18 14:12 | MHC.OFFVIS ---
Vital Signs 07/18/23 14:14 Height 5 ft 4 in Weight 147 lb 11.355 oz BMI 25.4 BP 120/70 Blood Pressure Location Lt brachial Position Sitting Pulse 60 Intake Visit Reasons: pre-op- colonoscopy clearance Intake Note: Pre-op clearnce colonscopy with ekg feeling good Senior Pensions Administrator Required: No Allergies erythromycin base Adverse Reaction (Mild, Verified 05/04/23 12:55) diarrhea Medication List - Last Reconciled 07/18/23 by Farhan Conteh MD amlodipine 5 mg PO DAILY 30 days bisacodyl (Dulcolax (bisacodyl)) 20 mg (4 x 5 mg) PO ONCE 1 day blood pressure monitor Automatic, Digital. Dx: I10. Daily As directed, 999 days/lifetime estradiol 10 mcg vaginal ONCE ibuprofen 800 mg PO TID 30 days lisinopril-hydrochlorothiazide 20-25 mg 1 tab PO DAILY 90 days metoprolol succinate ER 25 mg PO ONCE polyethylene glycol 3350 (Miralax) 238 grams PO ONCE sertraline 50 mg PO DAILY 90 days HPI Comments Details: Thank you for referring Sierra in cardiology consultation today for management of thoracic aortic aneurysm and hypertension. She is a pleasant 63-year-old female who on echocardiogram last year at an outside facility was noted to have mild thoracic aortic aneurysm at 4.3 cm. She also has over the last few years difficult control blood pressure since her 's health issues. Since then she has been gradually uptitrate to her current regimen and a blood pressures as has been very well controlled. She says she does good with her diet and also exercise on regular basis although does not run anymore. Strong family history for premature coronary artery disease on father's side and 2 of her sisters also had heart issues as per her. She does get exertional shortness of breath but no exertional chest pain. No orthopnea, PND, leg edema. No prolonged palpitations irregular heartbeats. She takes all her medications regularly. She is planned to undergo colonoscopy in near future which is considered low risk procedure. [facility] Medical History Celiac disease History of breast cancer Anxiety Depression Hypertension Surgical History S/P lumpectomy of breast H/O bilateral mastectomy History of knee surgery History of cholecystectomy History of tonsillectomy Family History Daughter Mental health disorder Breast cancer Sister Mental health disorder Breast cancer Lung cancer Myocardial infarction Father CAD (coronary artery disease) Myocardial infarction Mother Breast cancer Other Substance abuse Social History Household Members: Children Housing: House Are you a primary career services director to a significant other at home: No Do you presently have visiting nurse or other home services: No 75 years or older and lives alone: No Alcohol intake: current Alcohol intake frequency: holidays/special occasions only Alcohol type: wine Patient Tobacco Use Status: Former Tobacco user Tobacco use type: Cigarette Cigarette Packs Per Day: 0.5 Cigarettes Per Day: 10 Years Smoked: 2 e-Cigarette/Vaping Use: Never Used Second Hand Smoke Exposure: No service: No Current occupational status: retired Current occupational exposures/hazards: No Sexual orientation: Unable to collect Gender identity: Unable to collect Cognitive needs: No Hearing needs: No Vision needs: No Review of Systems Const Denies chills, Denies daytime sleepiness, Denies fatigue, Denies fever(s), Denies frequent falls, Denies poor appetite, Denies snoring, Denies stops breathing during sleep, Denies weakness, Denies weight gain and Denies weight loss Eyes Denies loss of vision ENT Denies dizziness and Denies hearing loss Card Denies chest pain, Denies claudication, Denies leg edema, Denies lightheadedness, Denies palpitations, Denies dyspnea, Denies dyspnea on exertion and Denies orthopnea Resp Denies cough, Denies excessive phlegm production, Denies dyspnea, Denies dyspnea on exertion, Denies snoring and Denies wheezing GI Denies abdominal pain, Denies hematochezia, Denies change in bowel habits, Denies nausea and Denies vomiting Denies urinary frequency and Denies dysuria Musc Denies arthralgias, Denies muscle weakness, Denies numbness and Denies other (frequent falls) Skin/Breast Denies nail changes and Denies rash Neuro Denies Abnormal speech present, Denies dizziness, Denies frequent falls, Denies loss of vision, Denies memory loss, Denies numbness and Denies weakness Psych Denies depression and Denies memory loss Endo Denies fatigue and Denies palpitations Brian/Lymph Reports easy bruising and Reports other (anemia) Aller/Immun Denies wheezing Physical Exam Vital Signs: Last Vital Signs Pulse 60 07/18/23 14:14 BP 120/70 07/18/23 14:14 BMI result Body Mass Index 25.4 Const General: cooperative, comfortable, no acute distress, well developed, alert, awake and Physically active Nutritional Appearance: average body habitus and well nourished Orientation/consciousness: patient oriented x3 Limitations: no limitations HEENT Head: Yes normocephalic and Yes atraumatic Neck Neck: Yes trachea midline, Yes supple and Yes no JVD Resp Effort & Inspection: normal respiratory effort Auscultation: clear to auscultation bilaterally Cardio Jugular venous distension: no JVD Palpation: normal PMI Rate: regular rate Rhythm: regular rhythm Heart sounds: S1 normal heart sound present, S2 normal heart sound present, no click, no gallops, no murmurs and no rubs GI Auscultation: normal bowel sounds Skin General skin exam: no rashes or lesions noted Neuro General: patient oriented x3 and no focal motor deficits Speech: No Abnormal speech present Extrem General: Yes no clubbing, cyanosis or edema Psych Appearance: grossly normal Office Procedures EKG Details: EKG shows NSR with normal EKG [id number], Complete Assessment & Plan Assessment & Plan (1) SOB (shortness of breath) on exertion: Code(s): R06.02 - Shortness of breath Plan: Patient with shortness of breath exertion with strong family history for premature coronary artery disease as well as her own history of hypertension and hyperlipidemia. At this point time suggest her to undergo treadmill stress test given that she is normal baseline EKG to evaluate for the same. If this is within normal limits suggest a possibly to consider coronary calcium score to further guide therapy especially if she would need statin therapy. She would think about it. (2) Preoperative cardiovascular examination: Code(s): Z01.810 - Encounter for preprocedural cardiovascular examination Plan: Preoperative cardiovascular risk stratification prior to colonoscopy which is considered low risk procedure. At this point time she has no concerning symptoms. Baseline EKGs normal. She is good exercise threshold. Would suggest that she can undergo the procedure with low risk for perioperative cardiovascular morbidity mortality. (3) Thoracic aortic aneurysm: Code(s): I71.20 - Thoracic aortic aneurysm, without rupture, unspecified Category: Medical Plan: Mild thoracic aortic aneurysm which has remained with no significant change. No surgical interventions required. Will continue monitor by echocardiogram on a yearly basis. Continue aggressive blood pressure control which is currently well optimized. Advised to avoid sudden strenuous isometric exercise otherwise can proceed with normal lifestyle. Will follow up in the clinic in 1 year's time, sooner p.r.n.. Thank you for allowing me to partake in the care Orders: Orders CA stress test Today Farhan Conteh MD R06.02 - Shortness of breath Medications: Changed From metoprolol succinate ER 12.5 mg (1/2 x 25 mg) PO BID 30 days 30 tabs 1RF To metoprolol succinate ER 25 mg PO ONCE Douglas Bain MD Coding Level of Care Code New Pt Level 4 (77366) Diagnoses SOB (shortness of breath) on exertion R06.02 Preoperative cardiovascular examination Z01.810 Thoracic aortic aneurysm I71.20 CPT Codes EKG - CPT: 30192-[id number], Complete ([id number])
[2023-07-18 14:14] VITALS: BP 120/70; PULSE 60; BMI 25.4
== END 2023-07-18 14:51 | disposition home or self-care (01) ==
PROVIDERS: PCP Family Medicine; Visit Provider Internal Medicine Cardiovascular Disease
DX: R06.02 Shortness of breath (principal); Z01.810 Encounter for preprocedural cardiovascular examination; I71.20 Thoracic aortic aneurysm, without rupture, unspecified
CPT/HCPCS: 93010; 99204

== ENCOUNTER → 2023-07-18 14:03 | Outpatient (BNVA) | payer OTHER, SELFPAY | PROVIDERS: PCP Family Medicine; Visit Provider Internal Medicine Cardiovascular Disease | DX: Z01.810 Encounter for preprocedural cardiovascular examination (principal); I71.20 Thoracic aortic aneurysm, without rupture, unspecified; I10 Essential (primary) hypertension; R06.02 Shortness of breath | CPT/HCPCS: 93005; 99202 ==

== ENCOUNTER → 2023-08-05 09:56 | Outpatient (REF) | payer OTHER, SELFPAY ==
--- NOTE | 2023-08-05 10:04 | CA_ITS ---
Acquisition Time: 2023-08-05 10:01:21 Total Exercise Time: 00:08:37 Test Indications: SOB, PREOP Medications: SEE H Protocol: MARTINE Max HR: 146 BPM 92% of Pred: 158 BPM Max BP: 142/068 mmHG Max Work Load: 10.1 METS Exercise stress test exercise 8 min 37 sec of Martine protocol achieving 86% MPHR, without anginal symptoms, isolated PVCs and PACs, ventricular bigeminy, with normotenisve response to exercise, without EKG changes. Test reviewed with Dr. Conteh Referred By: Farhan Conteh Overread By: Serena Ceja
== END ==
LOC: HO.CARD 09:56
PROVIDERS: PCP Family Medicine; Visit Provider Internal Medicine Cardiovascular Disease
DX: R06.02 Shortness of breath (principal)
CPT/HCPCS: 93017

== ENCOUNTER → 2023-08-05 10:04 | Outpatient (BNV) | payer OTHER, SELFPAY | PROVIDERS: PCP Family Medicine; Visit Provider Nurse Practitioner | DX: I49.3 Ventricular premature depolarization (principal); I49.1 Atrial premature depolarization | CPT/HCPCS: 93016; 93018 ==

== ENCOUNTER 2023-08-25 13:04 | Outpatient (AMB) | payer OTHER, SELFPAY ==
--- NOTE | 2023-08-25 13:14 | MHC.OFFVIS ---
Vital Signs 08/25/23 13:15 Height 5 ft 4 in Weight 149 lb 14.629 oz BMI 25.7 BP 120/68 Blood Pressure Location Lt brachial Position Sitting Pulse 87 Pulse Source Pulse Oximeter Intake Visit Reasons: 6 wk f/up ett Allergies erythromycin base Adverse Reaction (Mild, Verified 07/28/23 11:43) diarrhea HPI Comments Details: 63-year-old chio presents today for a follow-up after a stress test. She reports she has been doing well and is just overall concerned over testing and the thoracic aortic aneurysm. [facility] Medical History Celiac disease History of breast cancer Anxiety Depression Hypertension Surgical History S/P lumpectomy of breast H/O bilateral mastectomy History of knee surgery History of cholecystectomy History of tonsillectomy Family History Daughter Mental health disorder Breast cancer Sister Mental health disorder Breast cancer Lung cancer Myocardial infarction Father CAD (coronary artery disease) Myocardial infarction Mother Breast cancer Other Substance abuse Social History Household Members: Children Housing: House Are you a primary nursing care attendant to a significant other at home: No Do you presently have visiting nurse or other home services: No 75 years or older and lives alone: No Alcohol intake: current Alcohol intake frequency: holidays/special occasions only Alcohol type: wine Patient Tobacco Use Status: Former Tobacco user Tobacco use type: Cigarette Cigarette Packs Per Day: 0.5 Cigarettes Per Day: 10 Years Smoked: 2 e-Cigarette/Vaping Use: Never Used Second Hand Smoke Exposure: No service: No Current occupational status: retired Current occupational exposures/hazards: No Sexual orientation: Unable to collect Gender identity: Unable to collect Cognitive needs: No Hearing needs: No Vision needs: No Physical Exam Vital Signs: Last Vital Signs Pulse 87 08/25/23 13:15 BP 120/68 08/25/23 13:15 BMI result Body Mass Index 25.7 Const General: healthy appearing and no acute distress Orientation/consciousness: patient oriented x3 HEENT Head: Yes normal to inspection Eyes General: appearance normal, both eyes and all related structures Neck Neck: Yes normal visual inspection Chest Chest palpation & inspection: normal inspection of the chest Resp Effort & Inspection: normal respiratory effort Auscultation: clear to auscultation bilaterally Cardio Jugular venous distension: no JVD Palpation: normal PMI Rate: regular rate Rhythm: regular rhythm Heart sounds: S1 normal heart sound present, S2 normal heart sound present, no click, no gallops, no murmurs and no rubs GI Inspection: Yes normal to inspection Palpation (GI): Soft to palpation Skin General skin exam: no rashes or lesions noted Neuro General: patient oriented x3 Extrem General: Yes normal to inspection Psych Appearance: grossly normal Assessment & Plan Assessment & Plan (1) Thoracic aortic aneurysm: Code(s): I71.20 - Thoracic aortic aneurysm, without rupture, unspecified Category: Medical Plan: Repeat echo order in for one year. Recent echo showed no surgical intervention needed at this time. Tight control on blood pressures. Currently on amlodipine. (2) SOB (shortness of breath) on exertion: Code(s): R06.02 - Shortness of breath Plan: Stress test with great workload. Achieved 10.1 METS and 86% MPHR in 8 mins anf 37 sec of Jacob protocol. No ST changes during test. Orders: Orders CA echo transthoracic complete 10 Months I71.20 - Thoracic aortic aneurysm, without rupture, unspecified Coding Level of Care Code Est Pt Level 3 (52220) Diagnoses Thoracic aortic aneurysm I71.20 SOB (shortness of breath) on exertion R06.02
[2023-08-25 13:15] VITALS: BP 120/68; PULSE 87; BMI 25.7
== END 2023-08-25 13:46 | disposition home or self-care (01) ==
PROVIDERS: PCP Family Medicine; Visit Provider Nurse Practitioner
DX: I71.20 Thoracic aortic aneurysm, without rupture, unspecified (principal); R06.02 Shortness of breath
CPT/HCPCS: 99213

== ENCOUNTER → 2023-08-25 13:04 | Outpatient (BNVA) | payer OTHER, SELFPAY | PROVIDERS: PCP Family Medicine; Visit Provider Nurse Practitioner | DX: I71.20 Thoracic aortic aneurysm, without rupture, unspecified (principal); R06.02 Shortness of breath | CPT/HCPCS: 99212 ==

== ENCOUNTER 2023-08-30 05:57 | Day surgery (SDC) | payer OTHER, SELFPAY ==
--- NOTE | 2023-08-29 11:41 | HO.ANESPROP2 ---
Documented by User: Alma Flores NP 08/29/23 11:43 HPI - Anesthesia Eval Consult details Narrative: 63yo F for Upper Endoscopy and Colonoscopy Cardiac optimized [facility] Active Problems Active Problems: All Active Problems Palpitations (Acute) Thoracic aortic aneurysm (Acute) Lymphadenopathy (Acute) Depression with anxiety (Acute) Screening for colon cancer (Acute) Dehydration (Acute) Fatigue (Acute) Viral illness (Acute) Abdominal pain (Acute) Cough (Acute) Sinus infection (Acute) Celiac disease (Acute) Depression (Acute) Hypertension (Acute) Past Medical History Medical History (Updated 08/29/23 @ 10:59 by Mireya Villavicencio RN) Thoracic aortic aneurysm Celiac disease History of breast cancer Anxiety Depression Hypertension Family History Family History Daughter Mental health disorder Breast cancer Sister Mental health disorder Breast cancer Lung cancer Myocardial infarction Father CAD (coronary artery disease) Myocardial infarction Mother Breast cancer Other Substance abuse Surgical History Surgical History S/P lumpectomy of breast H/O bilateral mastectomy History of knee surgery History of cholecystectomy History of tonsillectomy Social History Social History Household Members: Children Housing: House Are you a primary childbirth and infant care teacher to a significant other at home: No Do you presently have visiting nurse or other home services: No Alcohol intake: current Alcohol intake frequency: holidays/special occasions only Alcohol type: wine Patient Tobacco Use Status: Former Tobacco user Tobacco use type: Cigarette Cigarette Packs Per Day: 0.5 Cigarettes Per Day: 10 Years Smoked: 2 e-Cigarette/Vaping Use: Never Used Second Hand Smoke Exposure: No Use of substances other than those prescribed or required for medical reasons: No Are you DNR?: No Advance Directives: No Advance Directives Information Provided: Yes service: No Current occupational status: retired Current occupational exposures/hazards: No Sexual orientation: Unable to collect Gender identity: Unable to collect Cognitive needs: No Hearing needs: No Vision needs: No Meds Allergies Allergy/AdvReac Type Severity Reaction Status Date / Time erythromycin base AdvReac Mild diarrhea Verified 08/30/23 06:46 Home Medications ?Medication ?Instructions ?Recorded ?Confirmed ?Last Taken ?Type estradiol 10 mcg vaginal tablet 10 mcg vaginal ONCE 07/18/23 08/30/23 Unknown History Exam Narrative Narrative: EKG 07/2023 NSR Exercise stress 07/2023 Protocol: JACOB Max HR: 146 BPM 92% of Pred: 158 BPM Max BP: 142/068 mmHG Max Work Load: 10.1 METS Exercise stress test exercise 8 min 37 sec of Jacob protocol achieving 86% MPHR, without anginal symptoms, isolated PVCs and PACs, ventricular bigeminy, with normotenisve response to exercise, without EKG changes. ECHO 06/2023 Conclusions: - The left ventricular systolic function is normal. The calculated ejection fraction is 63% by biplane method. - No obvious valvular pathology seen on this study. - There is mild dilatation of the ascending aorta measuring 3.80 cm. Assessment and Plan Assessment Anesthesia Assessment: Chart Reviewed Documented by User: Ad Campos MD 08/30/23 07:25 [facility] Past Medical History Medical History (Updated 08/29/23 @ 10:59 by Mireya Villavicencio RN) Thoracic aortic aneurysm Celiac disease History of breast cancer Anxiety Depression Hypertension Family History Family History Daughter Mental health disorder Breast cancer Sister Mental health disorder Breast cancer Lung cancer Myocardial infarction Father CAD (coronary artery disease) Myocardial infarction Mother Breast cancer Other Substance abuse Family history of problems with anesthesia: No Surgical History Surgical History S/P lumpectomy of breast H/O bilateral mastectomy History of knee surgery History of cholecystectomy History of tonsillectomy History of Problems with Anesthesia: No Social History Social History Household Members: Children Housing: House Are you a primary childbirth and infant care teacher to a significant other at home: No Do you presently have visiting nurse or other home services: No Alcohol intake: current Alcohol intake frequency: holidays/special occasions only Alcohol type: wine Patient Tobacco Use Status: Former Tobacco user Tobacco use type: Cigarette Cigarette Packs Per Day: 0.5 Cigarettes Per Day: 10 Years Smoked: 2 e-Cigarette/Vaping Use: Never Used Second Hand Smoke Exposure: No Use of substances other than those prescribed or required for medical reasons: No Are you DNR?: No Advance Directives: No Advance Directives Information Provided: Yes service: No Current occupational status: retired Current occupational exposures/hazards: No Sexual orientation: Unable to collect Gender identity: Unable to collect Cognitive needs: No Hearing needs: No Vision needs: No Meds Allergies Allergy/AdvReac Type Severity Reaction Status Date / Time erythromycin base AdvReac Mild diarrhea Verified 08/30/23 06:46 Home Medications ?Medication ?Instructions ?Recorded ?Confirmed ?Last Taken ?Type estradiol 10 mcg vaginal tablet 10 mcg vaginal ONCE 07/18/23 08/30/23 Unknown History Exam Narrative Narrative: yEKG 07/2023 NSR Exercise stress 07/2023 Protocol: JACOB Max HR: 146 BPM 92% of Pred: 158 BPM Max BP: 142/068 mmHG Max Work Load: 10.1 METS Exercise stress test exercise 8 min 37 sec of Jacob protocol achieving 86% MPHR, without anginal symptoms, isolated PVCs and PACs, ventricular bigeminy, with normotenisve response to exercise, without EKG changes. ECHO 06/2023 Conclusions: - The left ventricular systolic function is normal. The calculated ejection fraction is 63% by biplane method. - No obvious valvular pathology seen on this study. - There is mild dilatation of the ascending aorta measuring 3.80 cm. Airway Mallampati Class: III TM Dist: >3cm Neck ROM: Full Assessment and Plan Assessment Anesthesia Assessment: Anesthesia Plan Discussed Final Anesthetic Review Family History of Problems with Anesthesia: No History of Problems with Anesthesia: No NPO: Yes ASA Class: II Final Preanesthetic Review: No Changes in Pt Med Stat, Meds/Allgs Chart Reviewed, Consent Obtained/Reviewed and Anes Risks/Benef Reviewed Patient Risk: Low Procedure Risk: Low Anesthetic Plan Anesthetic Plan: TIVA Disposition: Standard PACU
--- NOTE | 2023-08-30 06:17 | MHC.SHP ---
Pre-Procedural Eval Section A - 24 Hr Update-Section A only Date of Service: 08/30/23 Section B - Complete if H&P > 30 days Chief Complaint: Celiac disease,screening Relevant Family History (Specify if Yes): No Relevant Social History: None Present Medications: see Short Stay Collaborative assessment Medical History: Significant History ( Thoracic aortic aneurysm Celiac disease History of breast cancer Anxiety Depression Hypertension) History of Previous Operations: Relevant previous surgery/procedure and date(s) ( S/P lumpectomy of breast H/O bilateral mastectomy History of knee surgery History of cholecystectomy History of tonsillectomy) Allergies: Allergies Allergy/AdvReac Type Severity Reaction Status Date / Time erythromycin base AdvReac Mild diarrhea Verified 07/28/23 11:43 Review of Systems Sugical H&P ROS: Negative: Constitution, Cardiovascular, Respiratory, Neurological, Psychiatric, Hem-Onc, Allergic/Immunologic, Gastrointestinal, Genitourinary, Musculoskeletal, Integumentary, Endocrine and Eyes/Ears/Nose/Throat Exam Surgical H&P Exam: Normal: HEENT, Normal: Heart, Normal: Lungs, Normal: Extremities, Normal: Abdomen, Normal: Skin and Normal: Neurological Plan Diagnosis/Plan: Unchanged I have reviewed the history and physical and performed a pertinent physical examination on my patient. No changes have occurred unless specified. Time Spent With Patient Time: Total time managing care of this patient today ____ minutes.
[2023-08-30 06:32] VITALS: BMI 25.1
[2023-08-30 06:43] VITALS: BP 142/93; PULSE 60; RESP 18; TEMP 36.1; O2SAT 99
[2023-08-30] MEDS: Lactated Ringers 1,000 ML 100 ML IVCONT (06:52)
--- NOTE | 2023-08-30 06:59 | PC.NURSE ---
pt reports no lymph edema x 3 years. has had an iv in right arm without lymphedema and had lymph edema after an iv. reports ok to put iv in right arm. anesthesia updated charge master coordinator Devyne aware.
--- NOTE | 2023-08-30 07:09 | PC.NURSE ---
Dr. Campos at bedside for consent, updated on lymph edema none for 3 years. ok'd iv in right arm and bp in left thigh.
--- NOTE | 2023-08-30 07:41 | P.OPN-COLO_ITS ---
Colonoscopy Operative Note Operative Note Date of Service: 08/30/23 Narrative: Operative Information Procedure Description: EGD, Colonoscopy Indication: hx of celiac and screening Anesthesia: MAC FLEXIBLE TRANSORAL UPPER GASTROINTESTINAL ENDOSCOPY AND COLONOSCOPY PROCEDURE NOTE UPPER ENDOSCOPY Consent: Indications for the procedure and potential complications of bleeding, perforation, reaction to medications and missed diagnosis were discussed with the patient and informed consent was obtained. Instrument: Olympus GIF H 190 J mid size upper endoscope Monitoring: Vital signs and clinical assessment, continuous EKG monitoring, Pulse oximetry, Carbon Dioxide monitoring and blood pressure monitoring were done throughout the procedure. Procedure: The patient was placed in the left lateral decubitis position and pre-procedure medications were administered and a bite block was placed. The endoscope was inserted into the mouth and advanced under direct vision to the third part of duodenum. A careful inspection was made as the upper endoscope was withdrawn including a retroflexed examination of the proximal stomach; Findings and interventions are described below. Findings: Larynx:normal Esophagus: GE junction at 40 cm, diaphragm hiatus at 40 cm, small streaky erosion seen with some edema and swelling at GEJ, bx taken from here and distal, proximal esophagus Stomach: Streaky antral gastritis. Biopsies were obtained. Grade 2 flap valve on retroflexed examination of the cardia. Duodenum: Normal bulb and descending duodenum, bx taken Intervention: Biopsies as noted above, COLONOSCOPY Instrument: Olympus variable stiffness pediatric scope 190L Colonoscopy Monitoring: Vital signs and clinical assessment, continuous EKG monitoring, Pulse oximetry, Carbon Dioxide monitoring and blood pressure monitoring were done throughout the procedure. Colon withdrawal time was 7 minutes. Procedure: The patient was placed in the left lateral decubitis position and pre-procedure medications were administered. After a digital rectal examination of the ano-rectum, the video colonoscope was inserted into the rectum and advanced through the colon to the cecum/TI. The colonoscope was slowly withdrawn in a retrograde panoramic fashion and the colon mucosa was carefully examined including a retroflexed view of the rectum. Findings and interventions are described below. Procedure Difficulty:moderate Findings: Terminal Ileum-normal Cecum:normal Ascending Colon: normal Transverse Colon -normal Descending Colon:normal Sigmoid Colon: moderate severe diverticulosis Rectum: Retroflexion with small internal hemorrhoids, grade I Anorectum - normal Colon preparation: [place] Bowel Preparation Scale Right colon; 2 Transverse colon: 2 Left colon; 2 (0 = Unprepared colon segment with mucosa not seen due to solid stool that cannot be cleared. 1 = Portion of mucosa of the colon segment seen, but other areas of the colon segment not well seen due to staining, residual stool and/or opaque liquid. 2 = Minor amount of residual staining, small fragments of stool and/or opaque liquid, but mucosa of colon segment seen well. 3 = Entire mucosa of colon segment seen well with no residual staining, small f ragments of stool or opaque liquid) Impression and Post Procedure Diagnosis: Endoscopy Findings: erosive esophagitis gastritis Colonoscopy Findings: diverticulosis internal hemorrhoids Plan: Await Pathology results Repeat Colonoscopy in 10 years or earlier if clinically indicated High fiber diet leaflet avoid straining at stool, epsom salts and sitz bath, anusol supps or cream GERd precautions, can consider low dose PPI as well Above findings were reviewed with the patient and relevant handouts were provided if indicated.
[2023-08-30 08:18] VITALS: BP 88/58; PULSE 60; RESP 16; TEMP 36.1; O2SAT 96
[2023-08-30 08:33] VITALS: BP 122/50; PULSE 53; RESP 18; TEMP 36.6; O2SAT 98
== END 2023-08-30 09:52 | disposition home or self-care (01) ==
PROVIDERS: PCP Family Medicine; Visit Provider Internal Medicine Gastroenterology
PROC: (CPT 45378; principal; 2023-08-30 07:30)
DX: Z12.11 Encounter for screening for malignant neoplasm of colon (principal); K57.30 Diverticulosis of large intestine without perforation or abscess without bleeding; K64.0 First degree hemorrhoids; K90.0 Celiac disease; K86.81 Exocrine pancreatic insufficiency; K21.9 Gastro-esophageal reflux disease without esophagitis; K20.80 Other esophagitis without bleeding; K29.50 Unspecified chronic gastritis without bleeding; K44.9 Diaphragmatic hernia without obstruction or gangrene; I10 Essential (primary) hypertension; R00.2 Palpitations; Z85.3 Personal history of malignant neoplasm of breast; F32.A Depression, unspecified; F41.9 Anxiety disorder, unspecified; Z88.1 Allergy status to other antibiotic agents; Z98.890 Other specified postprocedural states; Z87.891 Personal history of nicotine dependence
CPT/HCPCS: 45378; 43239; 88305; 88313; 88342; J2704

== ENCOUNTER → 2023-08-30 05:57 | Outpatient (BNV) | payer OTHER, SELFPAY | PROVIDERS: PCP Family Medicine; Visit Provider Internal Medicine Gastroenterology | DX: Z12.11 Encounter for screening for malignant neoplasm of colon (principal); K57.30 Diverticulosis of large intestine without perforation or abscess without bleeding; K64.0 First degree hemorrhoids; K20.90 Esophagitis, unspecified without bleeding; K29.70 Gastritis, unspecified, without bleeding | CPT/HCPCS: 43239; 45378 ==

== ENCOUNTER 2023-10-25 10:44 | Outpatient (AMB) | payer OTHER, SELFPAY ==
[2023-10-25 11:09] VITALS: PULSE 74; RESP 12; O2SAT 98; BMI 25.9
--- NOTE | 2023-10-25 11:09 | MHC.PC.OV ---
Vital Signs 10/25/23 11:09 Height 5 ft 4 in Weight 151 lb BMI 25.9 Blood Pressure Location Rt brachial Position Sitting Respiration 12 Pulse 74 Pulse Source Pulse Oximeter Pulse Oximetry (%) 98 Oxygen Delivery Method Room Air Intake Visit Reasons: Transfer from Dr. Bain Intake Note: Patient is transferring care from Dr. Bain. Patient reports she has no concerns at this time. Patient reports she needs medication rx sent to the pharmacy [facility] Take [facility] Tender Required: No Accompanied by: Self / Same As Patient Allergies erythromycin base Adverse Reaction (Mild, Verified 10/25/23 11:14) diarrhea Tobacco use date assessed: 03/25/23 Dental Screening Dental Screen Date: 03/25/23 HPI HPI Comments History of Present Illness Details This is a 63 year old female with a past medical history of hypertension, TAA, anxiety/depression presenting as internal transfer CV: Following with cardiology. UTD with monitoring. Last echo 4.7cm. On lisionpril-hctz 20-25mg, amlodipine 5md daily, metoprolol 25mg daily. Blood pressure controlled. Depression/Anxiety: On sertraline 50mg daily. Lots of life stressors. Was following with Dr Dietrich. Daughter from breast cancer. 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 Has appointment scheduled ROS CONSTITUTIONAL: Denies weight loss, fever and chills. HEENT: Denies changes in vision and hearing. RESPIRATORY: Denies SOB and cough. CV: Denies palpitations and CP GI: Denies abdominal pain, nausea, vomiting and diarrhea. : Denies dysuria and urinary frequency. MSK: Denies new myalgia and joint pain. SKIN: Denies rash and pruritus. NEUROLOGICAL: Denies headache PSYCHIATRIC: Denies recent changes in mood. PHYSICAL EXAM: GENERAL: Alert and oriented x 3. NAD EYES: EOMI. Anicteric. HENT: Moist mucous membranes. No scleral icterus. No cervical lymphadenopathy. LUNGS: Clear to auscultation bilaterally. CARDIOVASCULAR: Regular rate and rhythm. No murmur. No JVD. ABDOMEN: Soft, non-tender +bs EXTREMITIES: No edema. Non-tender. SKIN: No rashes or lesions. Warm. NEUROLOGIC: No focal neurological deficits. CN II-XII grossly intact PSYCHIATRIC: Cooperative. Appropriate mood and affect [facility] Medical History (Updated 10/25/23 @ 13:39 by Erlinda Beck MD) Thoracic aortic aneurysm Celiac disease History of breast cancer Anxiety Depression Hypertension Surgical History S/P lumpectomy of breast H/O bilateral mastectomy History of knee surgery History of cholecystectomy History of tonsillectomy Family History Daughter Mental health disorder Breast cancer Sister Mental health disorder Breast cancer Lung cancer Myocardial infarction Father CAD (coronary artery disease) Myocardial infarction Mother Breast cancer Other Substance abuse Social History Household Members: Children Housing: House Are you a primary professional healthcare representative to a significant other at home: No Do you presently have visiting nurse or other home services: No 75 years or older and lives alone: No Alcohol intake: current Alcohol intake frequency: holidays/special occasions only Alcohol type: wine Patient Tobacco Use Status: Former Tobacco user Tobacco use type: Cigarette Cigarette Packs Per Day: 0.5 Cigarettes Per Day: 10 Years Smoked: 2 e-Cigarette/Vaping Use: Never Used Second Hand Smoke Exposure: No service: No Current occupational status: retired Current occupational exposures/hazards: No Sexual orientation: Unable to collect Gender identity: Unable to collect Cognitive needs: No Hearing needs: No Vision needs: No Questionnaire PHQ-9 Over the last 2 weeks, how often have you been bothered by any of the following problems? 15655 - PHQ-9 Billing: Patient declined-do not bill Source: Developed by Drs. Jhony Ann, Yessica Roldan, Rafael Camacho and colleagues, with an educational arian from [employer]. Thrive Questionnaire Date Thrive assessed: 03/25/23 Please select the resources that you would like help with: None Currently or been in a relationship where the following occur: I choose not to answer THRIVE Score: 0 AUDIT C Alcohol Use Questionnaire (AUDIT-C) 1. How often do you have a drink containing alcohol?: Never 3. How often do you have six or more drinks on one occasion?: Never Total Score: 0 Score Reviewed/Action Taken: No INA-7 AMB Questionnaire INA-7 Date INA - 7 assessed: 03/25/23 Source: Developed by Drs. Jhony Ann, Yessica Roldan, Rafael Camacho and colleagues, with an educational arian from [employer]. INA-7 Assessment Billing INA-7 Assessment Tool: pt declined-do not bill Physical exam (Primary Care) Vital Signs: Last Vital Signs Pulse 74 10/25/23 11:09 Resp 12 10/25/23 11:09 Pulse Ox 98 10/25/23 11:09 Oxygen Delivery Method Room Air 10/25/23 11:09 BMI result Body Mass Index 25.9 Tobacco/Smoking Status: Tobacco use Status Tobacco use date assessed 03/25/23 10/25/23 11:16 Patient Tobacco Use Status Former Tobacco user 10/25/23 11:16 Tobacco use type Cigarette 10/25/23 11:16 e-Cigarette/Vaping Use Never Used 10/25/23 11:16 Thrive Assessment: Date of Thrive Assessment Date Thrive assessed 03/25/23 10/25/23 11:16 Currently or been in a relationship where the following occur: I choose not to answer Assessment and Plan Assessment & Plan (1) Depression with anxiety: Code(s): F41.8 - Other specified anxiety disorders Plan: stable on current medications (2) Hypertension: Comment: Goal is less than 130/80. Ideally less than 120/70. Code(s): I10 - Essential (primary) hypertension Qualifiers: Hypertension type: primary hypertension Qualified Code(s): I10 - Essential (primary) hypertension (3) Thoracic aortic aneurysm: Comment: followed by cardiology--no surgical intervention needed at this time as of 08/25/23 Code(s): I71.20 - Thoracic aortic aneurysm, without rupture, unspecified Qualifiers: Presence of rupture: without rupture Thoracic aorta location: unspecified Qualified Code(s): I71.20 - Thoracic aortic aneurysm, without rupture, unspecified Coding Level of Care Code Est Pt Level 4 (35992) Diagnoses Depression with anxiety F41.8 Primary hypertension I10 Hypertension type: primary hypertension Thoracic aortic aneurysm without rupture, unspecified part I71.20 Presence of rupture: without rupture Thoracic aorta location: unspecified
== END 2023-10-25 11:54 | disposition home or self-care (01) ==
PROVIDERS: PCP Family Medicine; Visit Provider Internal Medicine
DX: F41.8 Other specified anxiety disorders (principal); I10 Essential (primary) hypertension; I71.20 Thoracic aortic aneurysm, without rupture, unspecified

== ENCOUNTER → 2023-10-25 10:44 | Outpatient (BNVA) | payer OTHER, SELFPAY | PROVIDERS: PCP Family Medicine; Visit Provider Internal Medicine | DX: F41.8 Other specified anxiety disorders (principal); I10 Essential (primary) hypertension; I71.20 Thoracic aortic aneurysm, without rupture, unspecified; Z71.89 Other specified counseling | CPT/HCPCS: 99212 ==

== ENCOUNTER 2023-11-15 13:45 | Outpatient (AMB) | payer OTHER, SELFPAY ==
--- NOTE | 2023-11-15 13:55 | MHC.PC.OV ---
Vital Signs 11/15/23 13:58 Height 5 ft 4 in Weight 150 lb BMI 25.7 BP 110/84 Blood Pressure Location Lt brachial Position Sitting Respiration 12 Pulse 64 Pulse Source Pulse Oximeter Pulse Oximetry (%) 96 Oxygen Delivery Method Room Air Intake Visit Reasons: Ear lump Intake Note: Lump behind left ear. Notice a couple weeks ago. Allergies gluten Allergy (Severe, Verified 11/15/23 13:58) Diarrhea erythromycin base Adverse Reaction (Mild, Verified 11/15/23 13:58) diarrhea Tobacco use date assessed: 03/25/23 Dental Screening Dental Screen Date: 03/25/23 HPI HPI Comments History of Present Illness Details This is a 63 year old female with a past medical history of hypertension, TAA, anxiety/depression presenting for acute visit She has noticed an uncomfortable lump on the lateral left neck just below the ear line. No ear or jaw pain. Recent COVID but has persisted. Family history of breast cancer. Screening UTD. Some fatigue, denies night sweats CV: Following with cardiology. UTD with monitoring. Last echo 4.7cm. On lisionpril-hctz 20-25mg, amlodipine 5md daily, metoprolol 25mg daily. Blood pressure controlled. Depression/Anxiety: On sertraline 50mg daily. Lots of life stressors. Was following with Dr Dietrich. Daughter from breast cancer. 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 Has appointment scheduled ROS CONSTITUTIONAL: Denies weight loss, fever and chills. HEENT: Denies changes in vision and hearing. RESPIRATORY: Denies SOB and cough. CV: Denies palpitations and CP GI: Denies abdominal pain, nausea, vomiting and diarrhea. : Denies dysuria and urinary frequency. MSK: Denies new myalgia and joint pain. SKIN: Denies rash and pruritus. NEUROLOGICAL: Denies headache PSYCHIATRIC: Denies recent changes in mood. PHYSICAL EXAM: GENERAL: Alert and oriented x 3. NAD EYES: EOMI. Anicteric. HENT: Moist mucous membranes. Bilateral ear canals, TMs normal. Upper posterior cervical LN, hard tender 1.4cm, scattered ant cervical and posterior palpable nodes LUNGS: Clear to auscultation bilaterally. CARDIOVASCULAR: Regular rate and rhythm. No murmur. No JVD. ABDOMEN: Soft, non-tender +bs EXTREMITIES: No edema. Non-tender. SKIN: No rashes or lesions. Warm. NEUROLOGIC: No focal neurological deficits. CN II-XII grossly intact PSYCHIATRIC: Cooperative. Appropriate mood and affect [facility] Medical History Thoracic aortic aneurysm Celiac disease History of breast cancer Anxiety Depression Hypertension Surgical History S/P lumpectomy of breast H/O bilateral mastectomy History of knee surgery History of cholecystectomy History of tonsillectomy Family History Daughter Mental health disorder Breast cancer Sister Mental health disorder Breast cancer Lung cancer Myocardial infarction Father CAD (coronary artery disease) Myocardial infarction Mother Breast cancer Other Substance abuse Social History Household Members: Children Housing: House Are you a primary home health care worker to a significant other at home: No Do you presently have visiting nurse or other home services: No Alcohol intake: current Alcohol intake frequency: holidays/special occasions only Alcohol type: wine Patient Tobacco Use Status: Former Tobacco user Tobacco use type: Cigarette Cigarette Packs Per Day: 0.5 Cigarettes Per Day: 10 Years Smoked: 2 e-Cigarette/Vaping Use: Never Used Second Hand Smoke Exposure: No service: No Current occupational status: retired Current occupational exposures/hazards: No Sexual orientation: Unable to collect Gender identity: Unable to collect Cognitive needs: No Hearing needs: No Vision needs: No Questionnaire PHQ-9 Over the last 2 weeks, how often have you been bothered by any of the following problems? 1. Little interest or pleasure in doing things: not at all 2. Feeling down, depressed, or hopeless: not at all 3. Trouble falling or staying asleep, or sleeping too much: more than half the days 4. Feeling tired or having little energy: nearly every day 5. Poor appetite or overeating: not at all 6. Feeling bad about yourself - or that you are a failure or have let yourself or your family down: not at all 7. Trouble concentrating on things, such as reading the newspaper or watching television: not at all 8. Moving or speaking so slowly that other people could have noticed. Or the opposite - being so fidgety or restless that you have been moving around a lot more than usual: not at all 9. Thoughts that you would be better off or of hurting yourself in some way: not at all Total score: 5 Depression Screening Interpretation: Positive Depression Screening Follow-up: Declines treatment Depression Screening Done: Yes Source: Developed by Drs. Jhony Ann, Yessica Roldan, Rafael Camacho and colleagues, with an educational arian from [employer]. Thrive Questionnaire Date Thrive assessed: 03/25/23 I am a: Patient What is your living situation today?: I have a steady place to live Within the past 12 months, did the food you bought not last and you didn't have the money to get more?: Never true Within the past 12 months, did you worry whether your food would run out before you got money to buy more?: Never true Do you have trouble paying for medicines?: No Do you have trouble getting transportation to medical appointments?: No Do you have trouble paying your heating and electricity bill?: No Do you have trouble taking care of your child, family member or friend?: No Do you have trouble with day-to-day activities such as bathing, preparing meals, shopping, managing finances, etc.?: No Are you currently unemployed and looking for a job?: No Are you interested in more education?: No Please select the resources that you would like help with: None Currently or been in a relationship where the following occur: No concerns reported THRIVE Score: 0 AUDIT C Alcohol Use Questionnaire (AUDIT-C) 1. How often do you have a drink containing alcohol?: 2-4 times a month 2. How many drinks containing alcohol do you have on a typical day when you are drinking?: 1 or 2 3. How often do you have six or more drinks on one occasion?: Never Total Score: 2 INA-7 AMB Questionnaire INA-7 Date INA - 7 assessed: 03/25/23 Feeling nervous, anxious, or on edge: 0 = Not at all Not being able to stop or control worryin = Not at all Worrying too much about different things: 0 = Not at all Trouble relaxin = Not at all Being so restless that it is hard to sit still: 0 = Not at all Becoming easily annoyed or irritable: 0 = Not at all Feeling afraid as if something awful might happen: 0 = Not at all Total INA-7 score (0-4 normal; 5-9 mild; 10-14 moderate; 15-21 severe): 0 Source: Developed by Drs. Jhony Ann, Yessica Roldan, Rafael Camacho and colleagues, with an educational arian from [employer]. Physical exam (Primary Care) Vital Signs: Last Vital Signs Pulse 64 11/15/23 13:58 Resp 12 11/15/23 13:58 BP 110/84 11/15/23 13:58 Pulse Ox 96 11/15/23 13:58 Oxygen Delivery Method Room Air 11/15/23 13:58 BMI result Body Mass Index 25.7 Tobacco/Smoking Status: Tobacco use Status Tobacco use date assessed 03/25/23 11/15/23 13:59 Patient Tobacco Use Status Former Tobacco user 11/15/23 13:59 Tobacco use type Cigarette 11/15/23 13:59 e-Cigarette/Vaping Use Never Used 11/15/23 13:59 PHQ-9: PHQ-9 Score PHQ-9: Total score 5 11/15/23 13:59 Depression Screening Interpretation: Positive Depression Screening Follow-up: Declines treatment Thrive Assessment: Date of Thrive Assessment Date Thrive assessed 03/25/23 11/15/23 13:59 Currently or been in a relationship where the following occur: No concerns reported Coding Level of Care Code Est Pt Level 4 (13894) Diagnoses Cervical lymphadenopathy R59.0 Posterior auricular lymphadenopathy R59.0 Assessment & Plan Assessment & Plan (1) Cervical lymphadenopathy: Code(s): R59.0 - Localized enlarged lymph nodes Category: Medical Plan: US ordered. cbc ordered (2) Posterior auricular lymphadenopathy: Code(s): R59.0 - Localized enlarged lymph nodes Category: Medical Plan: see above Orders: Orders US soft tiss head and/or neck Today R59.0 - Localized enlarged lymph nodes Complete Blood Count Auto Diff Today R59.0 - Localized enlarged lymph nodes Medications: Changed From amlodipine 5 mg PO DAILY 30 days 30 tabs 0RF To amlodipine 5 mg PO DAILY 90 days 90 tabs 3RF
[2023-11-15 13:58] VITALS: BP 110/84; PULSE 64; RESP 12; O2SAT 96; BMI 25.7
== END 2023-11-15 16:23 | disposition home or self-care (01) ==
PROVIDERS: PCP Family Medicine; Visit Provider Internal Medicine
DX: R59.0 Localized enlarged lymph nodes (principal)

== ENCOUNTER → 2023-11-15 13:45 | Outpatient (BNVA) | payer OTHER, SELFPAY | PROVIDERS: PCP Family Medicine; Visit Provider Internal Medicine ==

== ENCOUNTER 2023-11-15 14:24 | Outpatient (REF) | payer OTHER, SELFPAY ==
[2023-11-15 17:55] LABS: MANUAL DIFF FLAG NO
[2023-11-15 18:19] LABS: Basophils Absolute Auto 0.1 X10*3/uL (0.0-0.2); Basophils Percent Auto 0.7 % (0-2); Eosinophils Absolute Auto 0.2 X10*3/uL (0.0-0.4); Eosinophils Percent Auto 2.1 % (0-4); Hematocrit 41.6 % (37.0-47.0); Hemoglobin 14.4 g/dl (12.0-16.0); Imm Gran Abs Auto 0.04 X10*3/uL (0.00-0.03); Imm Gran Pct Auto 0.4 % (0.0-0.4); Lymphocytes Absolute Auto 4.1 X10*3/uL (1.2-4.9); Lymphocytes Percent Auto 38.3 % (20-40); Mean Corpuscular HGB Conc 34.6 g/dl (31.0-35.0); Mean Corpuscular Hemoglobin 32.6 pg (27.0-33.0); Mean Corpuscular Volume 94.1 fL (80.0-98.0); Mean Platelet Volume 11.1 fL (9.4-12.3); Monocytes Absolute Auto 0.7 X10*3/uL (0.1-1.2); Monocytes Percent Auto 6.7 % (2-11); Neutrophils Absolute Auto 5.5 x10*3/uL (2.0-8.3); Neutrophils Percent Auto 51.8 % (45-73); Platelet Count 297 X10*3/uL (160-400); Red Blood Count 4.42 X10*6/uL (4.20-5.50); Red Cell Distribution Width 12.1 % (11.0-16.0); White Blood Count 10.7 X10*3/uL (4.8-10.8)
== END 2023-11-15 14:25 | disposition home or self-care (01) ==
LOC: HO.WFDLDS 14:24
PROVIDERS: Visit Provider Internal Medicine
DX: R59.0 Localized enlarged lymph nodes (principal)
CPT/HCPCS: 36415; 85025; 96127; 99212

== ENCOUNTER 2023-11-23 13:25 | Outpatient (REF) | payer OTHER, SELFPAY ==
--- NOTE | ~2023-11-23 | US_ITS ---
EXAMINATION: US THYROID CLINICAL INFORMATION: Enlarged lymph nodes. COMPARISON: None available. TECHNIQUE: Linear transducer borrero-scale and color Doppler examination with attention to the region of clinical concern in the neck. FINDINGS: In the palpable area behind the left ear, 2 lymph nodes are seen measuring 8 x 4 x 8 mm and 9 x 4 x 7 mm. The bilateral neck was also scanned and prominent lymph nodes were seen as follows: Right Neck: 8 x 3 x 7 mm (level Ia) 13 x 4 x 12 mm (level II) Left Neck: 11 x 4 x 8 mm (level Ib) 13 x 5 x 7 mm (level Ib) 7 x 3 x 5 mm (level Vb) All of these nodes have normal fatty slick and appeared unremarkable. US/US soft tiss head and/or neck IMPRESSION: Bilateral cervical lymph nodes as described above. Electronically signed by: Arnoldo Stoddard MD 11/24/2023 10:49 AM EDT
== END 2023-11-23 13:26 | disposition home or self-care (01) ==
LOC: HO.US 13:25
PROVIDERS: PCP Internal Medicine; Visit Provider Internal Medicine
DX: R59.0 Localized enlarged lymph nodes (principal)
CPT/HCPCS: 76536

== ENCOUNTER 2024-05-08 11:01 | Outpatient (REF) | payer OTHER, SELFPAY ==
--- OUTSIDE RECORDS SUMMARY | 2024-05-08 13:17 | XMS_ITS | Encounter Summary ---
Author Organization [facility] Address [address] [place] [address] Care Team Providers Care Truck Car And Bus Cleaner Name Role Phone Douglas Bain MD Primary Care Provider [phone] Encounter Details Date Type Department Care Team Description 05/07/2022 Social Work [facility] [address] [place] [address] Maryellen Helm, PRINTED CIRCUIT BOARD PCB DESIGNER Social History Tobacco Use Types Packs/Day Years Used Date Smoking Tobacco: Never Assessed Sex and Gender Information Value Date Recorded Sex Assigned at Female 04/16/2022 1:01 PM EST Gender Identity Not on file Sexual Orientation Not on file Job Start Date Occupation Industry Not on file Not on file Not on file COVID-19 Exposure Response Date Recorded In the last 10 days, have yo u been in contact with someone who was confirmed or suspected to have Coronavirus/COVID-19? No / Unsure 04/27/2022 10:45 AM EDT documented as of this encounter Plan of Treatment Not on file documented as of this encounter Visit Diagnoses Not on filedocumented in this encounter Care Teams Truck Car And Bus Cleaner Relationship Specialty Start Date End Date Douglas Bain MD [address] [place] [address] PCP - General Family Medicine 04/27/22 documented as of this encounter
--- OUTSIDE RECORDS SUMMARY | 2024-05-08 13:17 | XMS_ITS | Clinical Summary ---
Author Organization [facility] Address [address] [place] [address] Care Team Providers Care Hospital Recruiter Name Role Phone Douglas Bain MD Primary Care Provider [phone] Allergies No known active allergies Medications Medication Sig Dispensed Refills Start Date End Date Status hydroCHLOROthiazide (HYDRODIURIL) tablet 25 mg Take 1 tablet (25 mg total) by mouth daily. 0 Active SERTRALINE HCL PO Take by mouth. 0 Act celine omeprazole (PriLOSEC) 40 MG capsule Take 1 capsule (40 mg total) by mouth daily. 0 Active Multiple Vitamins-Minerals (WOMENS 50+ MULTI VITAMIN/MIN PO) Take by mouth. 0 Activ e Active Problems No known active problems Social History Tobacco Use Types Packs/Day Years Used Date Smoking Tobacco: Never Assessed Sex and Gender Information Value Date Recorded Sex Assigned at Female 04/16/2022 1:01 PM EST Gender Identity Not on file Sexual Orientation Not on file Job Start Date Occupation Industry Not on file Not on file Not on file Last Filed Vital Signs Vital Sign Reading Time Taken Comments Blood Pressure 164/100 05/25/2022 10:01 AM EDT stressed - taking care of grandkids - a lot going on Pulse 74 05/25/2022 10:01 AM EDT Temperature 36.6 ??C (97.8 ??F) 05/25/2022 1 0:01 AM EDT Respiratory Rate - - Oxygen Saturation 97% 05/25/2022 10: 01 AM EDT Inhaled Oxygen Concentration - - Weight 72.7 kg (160 lb 3.2 oz) 05/25/2022 10:01 AM EDT Height 162.6 cm (5' 4 ) 05/25/2022 10:0 1 AM EDT Body Mass Index 27.5 05/25/2022 10:01 AM EDT Plan of Treatment Health Maintenance Due Date Last Done Comments Hepatitis C Screening 1960 COVID-19 Vaccine (#1) 1961 Depression Screening 1973 BMI Counseling 05/22/1979 Preventative Health Evaluation 05/22/1979 Cervical Cancer Screening (Pap Smear) 1982 Colon Cancer Screening (Colonoscopy) 2006 Breast Cancer Screening (Mammogram) 05/22/2011 Shingrix-Zoster Vaccine (1 of 2) 05/22/2011 DTap / Tdap / Td (2 - Td or Tdap) 11/19/2020 11/19/2010 Influenza Vaccine (#1) 2023 0, 11/23/2017, 10/28/2016, Additional history exists RSV Adult > 60+ Yrs or (1 - 1-dose 75+ series) 2036 Pneumococcal Vaccine Aged Out 07/20/2016 No long er eligible based on patient's age to complete this topic Hepatitis B Vaccines Aged Out No long er eligible based on patient's age to complete this topic RSV Ped < 20 months Aged Out No longe r eligible based on patient's age to complete this topic Care Teams Hospital Recruiter Relationship Specialty Start Date End Date Douglas Bain MD [address] [place] [id number] PCP - General Family Medicine 04/27/22
[2024-05-08 14:46] LABS: MANUAL DIFF FLAG NO
[2024-05-08 15:00] LABS: Basophils Absolute Auto 0.1 X10*3/uL (0.0-0.2); Basophils Percent Auto 0.7 % (0-2); Eosinophils Absolute Auto 0.2 X10*3/uL (0.0-0.4); Eosinophils Percent Auto 2.2 % (0-4); Hematocrit 41.5 % (37.0-47.0); Hemoglobin 14.2 g/dl (12.0-16.0); Imm Gran Abs Auto 0.04 X10*3/uL (0.00-0.03); Imm Gran Pct Auto 0.5 % (0.0-0.4); Lymphocytes Absolute Auto 3.2 X10*3/uL (1.2-4.9); Lymphocytes Percent Auto 38.3 % (20-40); Mean Corpuscular HGB Conc 34.2 g/dl (31.0-35.0); Mean Corpuscular Hemoglobin 32.3 pg (27.0-33.0); Mean Corpuscular Volume 94.5 fL (80.0-98.0); Mean Platelet Volume 11.4 fL (9.4-12.3); Monocytes Absolute Auto 0.6 X10*3/uL (0.1-1.2); Neutrophils Absolute Auto 4.2 x10*3/uL (2.0-8.3); Neutrophils Percent Auto 51.3 % (45-73); Platelet Count 248 X10*3/uL (160-400); Red Blood Count 4.39 X10*6/uL (4.20-5.50); Red Cell Distribution Width 12.4 % (11.0-16.0); White Blood Count 8.3 X10*3/uL (4.8-10.8)
[2024-05-08 17:07] LABS: Estimated Average Glucose 123 mg/dL; Hemoglobin A1C 148.8595 umol/L; Hemoglobin A1c % 5.9 % (<6.0); Total Hemoglobin (HGBA1C) 3649.2504 umol/L
[2024-05-08 17:30] LABS: Alanine Aminotransferase 38 U/L (0-31); Albumin Level 4.1 g/dL (3.5-5.0); Alkaline Phosphatase 62 U/L (39-117); Anion Gap 10 (12-20); Aspartate Amino Transferase 31 U/L (5-31); Bilirubin Total 0.5 mg/dL (0.0-1.0); Blood Urea Nitrogen 19 mg/dL (9-16); Calcium 9.3 mg/dL (8.4-10.2); Carbon Dioxide 25 mmol/L (22-29); Chloride 111 mmol/L (96-108); Cholesterol 184 mg/dL (<200); Estimated Glomerular Filt Rate > 60; Glucose Random 109 mg/dL (60-115); HDL Cholesterol 35 mg/dL (>40); LDL Cholesterol Calculated 110 mg/dL (<100); Sodium 142 mmol/L (135-145); Total Protein 6.7 g/dL (6.5-8.0); Triglycerides 199 mg/dL (<150)
[2024-05-12 16:04] LABS: Vitamin D 25-OH, D2 <4 ng/mL; Vitamin D 25-OH, D3 24 ng/mL; Vitamin D 25-OH, Total 24 ng/mL (30-100)
== END 2024-05-08 11:02 | disposition home or self-care (01) ==
LOC: HO.WFDLDS 11:01
PROVIDERS: Visit Provider Internal Medicine
DX: Z00.00 Encounter for general adult medical examination without abnormal findings (principal); I71.21 Aneurysm of the ascending aorta, without rupture; J01.00 Acute maxillary sinusitis, unspecified; Z85.3 Personal history of malignant neoplasm of breast; I10 Essential (primary) hypertension; F41.8 Other specified anxiety disorders; R73.09 Other abnormal glucose; Z13.228 Encounter for screening for other metabolic disorders
CPT/HCPCS: 36415; 80053; 80061; 82306; 83036; 85025; 96127; 99396

== ENCOUNTER 2024-05-08 15:47 | Outpatient (AMB) | payer OTHER, SELFPAY ==
--- NOTE | 2024-05-08 15:49 | MHC.PC.OV ---
Vital Signs 05/08/24 16:05 Height 5 ft 4 in Weight 151 lb 2 oz BMI 25.9 BP 132/88 Blood Pressure Location Rt brachial Position Sitting Respiration 14 Pulse 73 Pulse Source Pulse Oximeter Pulse Oximetry (%) 97 Oxygen Delivery Method Room Air Intake Visit Reasons: cpe Intake Note: Physical Integration Assistant Required: No Allergies gluten Allergy (Severe, Verified 05/08/24 16:02) Diarrhea erythromycin base Adverse Reaction (Mild, Verified 05/08/24 16:02) diarrhea Tobacco use date assessed: 03/25/23 Dental Screening Dental Screen Date: 03/25/23 HPI HPI Comments History of Present Illness Details This is a 63 year old female with a past medical history of hypertension, TAA, anxiety/depression presenting for physical exam CV: Following with cardiology. UTD with monitoring. Last echo 4.7cm. On lisionpril-hctz 20-25mg, amlodipine 5md daily, metoprolol 25mg daily. Blood pressure controlled. Has had two episodes where she has developed shortness of breath and palpitations. If it happens again she would consider getting a heart monitor but declines at the moment. Depression/Anxiety: On sertraline 50mg daily. Lots of life stressors. Was following with Dr Dietrich. Daughter from breast cancer. a few years ago from bile duct cancer. Sister has alzeihmers and just found out she has a massive kidney tumor. 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 Has appointment scheduled Mammo:s/p mastectomy Colon cancer screenin08/2023-double endoscopy 10 years [facility] ROS CONSTITUTIONAL: Denies weight loss, fever and chills. HEENT: Denies changes in vision and hearing. RESPIRATORY: Denies SOB and cough. CV: Denies palpitations and CP GI: Denies abdominal pain, nausea, vomiting and diarrhea. : Denies dysuria and urinary frequency. MSK: Denies new myalgia and joint pain. SKIN: Denies rash and pruritus. NEUROLOGICAL: Denies headache PSYCHIATRIC: Denies recent changes in mood. PHYSICAL EXAM: GENERAL: Alert and oriented x 3. NAD EYES: EOMI. Anicteric. HENT: Moist mucous membranes. Bilateral ear canals, TMs normal. Upper posterior cervical LN, hard tender 1.4cm, scattered ant cervical and posterior palpable nodes LUNGS: Clear to auscultation bilaterally. CARDIOVASCULAR: Regular rate and rhythm. No murmur. No JVD. ABDOMEN: Soft, non-tender +bs EXTREMITIES: No edema. Non-tender. SKIN: No rashes or lesions. Warm. NEUROLOGIC: No focal neurological deficits. CN II-XII grossly intact PSYCHIATRIC: Cooperative. Appropriate mood and affect [facility] Medical History Thoracic aortic aneurysm Celiac disease History of breast cancer Anxiety Depression Hypertension Surgical History S/P lumpectomy of breast H/O bilateral mastectomy History of knee surgery History of cholecystectomy History of tonsillectomy Family History Daughter Mental health disorder Breast cancer Sister Mental health disorder Breast cancer Lung cancer Myocardial infarction Father CAD (coronary artery disease) Myocardial infarction Mother Breast cancer Other Substance abuse Social History (Updated 05/08/24 @ 16:09 by Silvana Keith CMA) Household Members: Children Housing: House Are you a primary health care legal assistant to a significant other at home: No Do you presently have visiting nurse or other home services: No 75 years or older and lives alone: No Alcohol intake: current Alcohol intake frequency: holidays/special occasions only Alcohol type: wine Patient Tobacco Use Status: Former Tobacco user Tobacco use type: Cigarette Cigarette Packs Per Day: 0.5 Cigarettes Per Day: 10 Years Smoked: 2 e-Cigarette/Vaping Use: Never Used Second Hand Smoke Exposure: No service: No Current occupational status: retired Current occupational exposures/hazards: No Sexual orientation: Unable to collect Gender identity: Unable to collect Cognitive needs: No Hearing needs: No Vision needs: No Questionnaire PHQ-9 Over the last 2 weeks, how often have you been bothered by any of the following problems? 1. Little interest or pleasure in doing things: not at all 2. Feeling down, depressed, or hopeless: not at all 3. Trouble falling or staying asleep, or sleeping too much: several days 4. Feeling tired or having little energy: several days 5. Poor appetite or overeating: not at all 6. Feeling bad about yourself - or that you are a failure or have let yourself or your family down: not at all 7. Trouble concentrating on things, such as reading the newspaper or watching television: not at all 8. Moving or speaking so slowly that other people could have noticed. Or the opposite - being so fidgety or restless that you have been moving around a lot more than usual: not at all 9. Thoughts that you would be better off or of hurting yourself in some way: not at all Total score: 2 Depression Screening Interpretation: Negative Depression Screening Done: Yes 23339 - PHQ-9 Billing: Yes Source: Developed by Drs. Jhony Ann, Yessica Roldan, Rafael Camacho and colleagues, with an educational arian from [employer]. Thrive Questionnaire Date Thrive assessed: 05/08/24 I am a: Patient What is your living situation today?: I have a steady place to live Within the past 12 months, did the food you bought not last and you didn't have the money to get more?: Never true Within the past 12 months, did you worry whether your food would run out before you got money to buy more?: Never true Do you have trouble paying for medicines?: No Do you have trouble getting transportation to medical appointments?: No Do you have trouble paying your heating and electricity bill?: No Do you have trouble taking care of your child, family member or friend?: No Do you have trouble with day-to-day activities such as bathing, preparing meals, shopping, managing finances, etc.?: No Are you currently unemployed and looking for a job?: No Are you interested in more education?: No Please select the resources that you would like help with: None Currently or been in a relationship where the following occur: No concerns reported THRIVE Score: 0 AUDIT C Alcohol Use Questionnaire (AUDIT-C) 1. How often do you have a drink containing alcohol?: Monthly or less 3. How often do you have six or more drinks on one occasion?: Never Total Score: 1 INA-7 AMB Questionnaire INA-7 Date INA - 7 assessed: 05/08/24 Feeling nervous, anxious, or on edge: 1 = Several days Not being able to stop or control worryin = Not at all Worrying too much about different things: 0 = Not at all Trouble relaxin = Nearly every day Being so restless that it is hard to sit still: 0 = Not at all Becoming easily annoyed or irritable: 1 = Several days Feeling afraid as if something awful might happen: 0 = Not at all Total INA-7 score (0-4 normal; 5-9 mild; 10-14 moderate; 15-21 severe): 5 Source: Developed by Drs. Jhony Ann, Yessica Roldan, Rafael Camacho and colleagues, with an educational arian from [employer]. INA-7 Assessment Billing INA-7 Assessment Tool: INA-7 Assessment 08305 Physical exam (Primary Care) Vital Signs: Last Vital Signs Pulse 73 05/08/24 16:05 Resp 14 05/08/24 16:05 BP 132/88 05/08/24 16:05 Pulse Ox 97 05/08/24 16:05 Oxygen Delivery Method Room Air 05/08/24 16:05 BMI result Body Mass Index 25.9 Tobacco/Smoking Status: Tobacco use Status Tobacco use date assessed 03/25/23 05/08/24 15:49 Patient Tobacco Use Status Former Tobacco user 05/08/24 16:09 Tobacco use type Cigarette 05/08/24 16:09 e-Cigarette/Vaping Use Never Used 05/08/24 16:09 PHQ-9: PHQ-9 Score PHQ-9: Total score 2 05/11/24 13:35 Depression Screening Interpretation: Negative Thrive Assessment: Date of Thrive Assessment Date Thrive assessed 05/08/24 05/08/24 15:49 Currently or been in a relationship where the following occur: No concerns reported Coding Level of Care Code Est Pt Prev Care 40-64y(04947) Diagnoses Physical exam Z00.00 Thoracic aortic aneurysm without rupture, unspecified part I71.20 Presence of rupture: without rupture Thoracic aorta location: unspecified History of breast cancer Z85.3 Subacute maxillary sinusitis J01.00 Chronicity: subacute Sinusitis location: maxillary Additional Codes INA-7 Assessment Billing - INA-7 Assessment Tool: INA-7 Assessment 59326 ([id number]) PHQ-9 - 07072 - PHQ-9 Billing: Yes ([id number]) Assessment & Plan Assessment & Plan (1) Physical exam: Code(s): Z00.00 - Encounter for general adult medical examination without abnormal findings Category: Medical (2) Thoracic aortic aneurysm: Comment: followed by cardiology--no surgical intervention needed at this time as of 08/25/23 Code(s): I71.20 - Thoracic aortic aneurysm, without rupture, unspecified Category: Medical Qualifiers: Presence of rupture: without rupture Thoracic aorta location: unspecified Qualified Code(s): I71.20 - Thoracic aortic aneurysm, without rupture, unspecified (3) History of breast cancer: Code(s): Z85.3 - Personal history of malignant neoplasm of breast Category: Medical (4) Thoracic aortic aneurysm: Code(s): I71.20 - Thoracic aortic aneurysm, without rupture, unspecified Category: Medical Qualifiers: Presence of rupture: without rupture Thoracic aorta location: ascending aorta Qualified Code(s): I71.21 - Aneurysm of the ascending aorta, without rupture (5) Sinus infection: Code(s): J32.9 - Chronic sinusitis, unspecified Category: Medical Qualifiers: Chronicity: subacute Sinusitis location: maxillary Qualified Code(s): J01.00 - Acute maxillary sinusitis, unspecified Plan 63 y/o for CPE Interval history reviewed Chronic medical conditions reviewed and stable Increased sinus congestion x 6 weeks despite otc treatment Orders: Orders Basic Metabolic Panel 6 Months I10 - Essential (primary) hypertension, R73.09 - Other abnormal glucose Medications: New azithromycin For 250 mg dose pack: take 500 mg today (day 1), then 250 mg for 4 days (days 2-5) PO 6 tabs 0RF
[2024-05-08 16:05] VITALS: BP 132/88; PULSE 73; RESP 14; O2SAT 97; BMI 25.9
--- OUTSIDE RECORDS SUMMARY | 2024-05-08 18:35 | XMS_ITS | Encounter Summary ---
Author Organization [facility] Address [address] [place] [address] Care Team Providers Care Digital Sales Representative Name Role Phone Douglas Bain MD Primary Care Provider [phone] Encounter Details Date Type Department Care Team Description 05/07/2022 Social Work [facility] [address] [place] [address] Maryellen Helm, BACK WEDGER Social History Tobacco Use Types Packs/Day Years [...] on filedocumented in this encounter Care Teams Digital Sales Representative Relationship Specialty Start Date End Date Douglas Bain MD [address] [place] [address] PCP - General Family Medicine 04/27/22 documented as of this encounter
--- OUTSIDE RECORDS SUMMARY | 2024-05-08 18:35 | XMS_ITS | Clinical Summary ---
Author Organization [facility] Address [address] [place] [address] Care Team Providers Care Accounts Receivable Collector Name Role Phone Douglas Bain MD Primary Care Provider [phone] Allergies No known active allergies Medications Medication [...] age to complete this topic Care Teams Accounts Receivable Collector Relationship Specialty Start Date End Date Douglas Bain MD [address] [place] [id number] PCP - General Family Medicine 04/27/22
== END 2024-05-08 16:52 | disposition home or self-care (01) ==
LOC: HO.HMCFM 15:48
PROVIDERS: PCP Internal Medicine; Visit Provider Internal Medicine
DX: Z00.00 Encounter for general adult medical examination without abnormal findings (principal); I71.20 Thoracic aortic aneurysm, without rupture, unspecified; Z85.3 Personal history of malignant neoplasm of breast; J01.00 Acute maxillary sinusitis, unspecified; I71.21 Aneurysm of the ascending aorta, without rupture

== ENCOUNTER → 2024-07-13 10:49 | Outpatient (REF) | payer OTHER, SELFPAY ==
--- NOTE | 2024-07-13 10:51 | CA_ITS ---
Transthoracic Echocardiogram Patient (Last, First, Middle): Sierra Flowers, Gender: Female Date of : 1960 Age: 64 Procedure Date: 07/13/2024 Procedure Type: Transthoracic Echocardiogram Location: OP Height: 162.56 cm Weight: 68.49 kg BSA: 1.74 m2 Heart Rate: 59 bpm BP: 132 / 84 mmHg Heel Cover Softener: SB Referring MD: Farhan Conteh MD Symptoms: I71.20 - Thoracic aortic aneurysm, without rupture, unspecified Study Quality: Adequate ECG Rhythm: Bradycardia Conclusions: - The left ventricular systolic function is normal. The calculated ejection fraction is 66% by biplane method. - No obvious valvular pathology seen on this study. - There is mild dilatation of the ascending aorta measuring 4.10 cm. Findings Left Ventricle Normal left ventricular cavity size. There is normal left ventricular wall thickness. The left ventricular systolic function is normal. The calculated ejection fraction is 66% by biplane method. There is no evidence of regional wall motion abnormalities. Diastolic function is normal for age. Right Ventricle Mildly increased right ventricular cavity size. There is normal right ventricular systolic function. Atria The left atrium is normal in size. The right atrium is mildly dilated. Aortic Valve There is a normal trileaflet aortic valve. There is no aortic valve stenosis. There is trace (trivial) aortic valve regurgitation. Mitral Valve The mitral valve appears normal. There is trace mitral valve regurgitation. There is no mitral valve stenosis. Pulmonic Valve The pulmonic valve is likely normal. Tricuspid Valve There is mild tricuspid valve regurgitation. There is no evidence of pulmonary hypertension. Great Vessels The aortic arch is normal in size. There is mild dilatation of the ascending aorta measuring 4.10 cm. Venous The inferior vena cava is normal in size and collapses greater than 50% with inspiration. Pericardium/Pleural There is no evidence of pericardial effusion. Prior Study Comparison Changes noted compared to prior study dated: 06/09/2023. Increase in ascending aortic size. Recommendations, Care & Conclusions No obvious valvular pathology seen on this study. Measurements 2D Linear Measurements IVSd: 0.87 0.6-0.9/0.6-1.0 cm LVIDd: 4.10 3.9-5.3/4.2-5.9 cm LVIDd Index: 2.36 2.4-3.2/2.2-3.1 cm/m2 LVIDs: 2.64 2.0-3.6 cm LVPWd: 0.75 0.7-1.1 cm LA Diam: 3.50 2.7-3.8/3.0-4.0 cm LAIDs Index: 2.01 1.5-2.3 cm/m2 LV Mass: 122.96 67-162/88-224 g LV Mass Index: 70.67 43-95/49-115 g/m2 LVOT Diam: 2.00 3.0+(-)1.3 cm 2D Systolic Function EF 4C: 72.20 >55% EF 2C: 60.80 >55% EF BiP: 66.30 >55% Mitral Valve MV Pk E: 0.74 MV PK A: 1.03 MV Decel Time: 236.00 E/A: 0.70 E'Lateral: 7.40 E'Medial: 5.55 E/E' Med: 13.40 E/E' Lat: 10.00 PHT: 69.00 MVA PHT: 3.19 Decel Mcleod: 3.14 Aortic Valve AoV Pk Allen: 1.21 AoV Pk Grad: 6.00 ZOHREH: 2.98 AI Pk Allen: 4.52 AI Mcleod: 1.84 LVOT LVOT Pk Allen: 1.10 LVOT Mn Allen: 0.70 LVOT VTI: 0.22 LVOT Pk Grad: 5.00 LVOT Mn Grad: 3.00 LVOT Diam: 2.00 LVOT Area: 3.14 Diastolic Function MV Pk E: 0.74 MV Pk A: 1.03 E/A: 0.70 E'Medial: 5.55 E/E' Med: 13.40 E' Laterial: 7.40 E/E' Lat: 10.00 Right Ventricle TAPSE (mm): 23.20 TVS' Allen: 12.50 Tricuspid Valve TR Pk Allen: 2.16 TR Pk Grad: 19.00 RA Press: 3.00 RVSP: 22.00 Great Vessels Aorta Sinus of Valsalva: 3.20 2.0-3.5 cm Ao Asc: 4.10 2.1-3.4 cm Ao Arch: 2.80 Pulmonary Veins Pulm Vein S/D 1.50 Pulmonary Valve PV Pk Allen: 0.78 Peak PV Grad: 2.00 Updated in Other Vendor System with Status of Final Jonas Painter MD electronically signed on 07/14/2024 1:31:27 PM with status of Final
--- OUTSIDE RECORDS SUMMARY | 2024-07-13 11:45 | XMS_ITS | Clinical Summary ---
Author Organization [facility] Address [address] [place] [address] Care Team Providers Care Payroll Clerk Name Role Phone Douglas Bain MD Primary Care Provider [phone] Allergies No known active allergies Medications Medication [...] Td or Tdap) 11/19/2020 11/19/2010 Influenza Vaccine (Season Ended) 2024 12/04/2019, 11/23/2017, 10/28/2016, Additional history exists RSV Adult [...] age to complete this topic Care Teams Payroll Clerk Relationship Specialty Start Date End Date Douglas Bain MD [facility] [place] [address] PCP - General Family Medicine 04/27/22
== END ==
LOC: HO.CARD 10:49
PROVIDERS: PCP Internal Medicine; Visit Provider Internal Medicine Cardiovascular Disease
DX: I71.20 Thoracic aortic aneurysm, without rupture, unspecified (principal)
CPT/HCPCS: 93306

== ENCOUNTER → 2024-07-13 10:51 | Outpatient (BNV) | payer OTHER, SELFPAY | PROVIDERS: PCP Internal Medicine; Visit Provider Internal Medicine | DX: I71.21 Aneurysm of the ascending aorta, without rupture (principal); I36.1 Nonrheumatic tricuspid (valve) insufficiency | CPT/HCPCS: 93306 ==

== ENCOUNTER 2024-08-29 10:58 | Outpatient (REF) | payer OTHER, SELFPAY ==
[2024-08-30 13:32] LABS: Lyme Blot 1.35 index
[2024-09-02 11:45] LABS: Lyme Abs Screen POSITIVE
[2024-09-10 23:03] LABS: 39KD (IgG) Band NON-REACTIVE; 41KD (IgG) Band REACTIVE; Lyme IgG Blot Interp NEGATIVE (NEGATIVE); Lyme IgM Blot Interp NEGATIVE (NEGATIVE)
== END 2024-08-29 10:59 | disposition home or self-care (01) ==
LOC: HO.LAB 10:58
PROVIDERS: PCP Family Medicine; Visit Provider Internal Medicine Cardiovascular Disease
DX: I71.21 Aneurysm of the ascending aorta, without rupture (principal); I10 Essential (primary) hypertension; Z79.899 Other long term (current) drug therapy; Z01.84 Encounter for antibody response examination; W57.XXXA Bitten or stung by nonvenomous insect and other nonvenomous arthropods, initial encounter
CPT/HCPCS: 36415; 86617; 86618; 93005; 99212

== ENCOUNTER 2024-08-29 10:58 | Outpatient (AMB) | payer OTHER, SELFPAY ==
--- NOTE | 2024-08-29 11:00 | MHC.OFFVIS ---
Vital Signs 08/29/24 11:01 Height 5 ft 4 in Weight 154 lb 5.177 oz BMI 26.5 BP 120/74 Blood Pressure Location Lt brachial Position Sitting Pulse 71 Intake Visit Reasons: 1 yr follow up Intake Note: 1 year follow-up with ekg feeling Daily Sales Audit Clerk Required: No Allergies gluten Allergy (Severe, Verified 05/08/24 16:02) Diarrhea erythromycin base Adverse Reaction (Mild, Verified 05/08/24 16:02) diarrhea Medication List - Last Reconciled 08/29/24 by Farhan Conteh MD amlodipine 5 mg PO DAILY 90 days blood pressure monitor Automatic, Digital. Dx: I10. Daily As directed, 999 days/lifetime cholecalciferol (vitamin D3) 50 mcg PO DAILY estradiol 10 mcg vaginal 2XW ibuprofen 800 mg PO TID 90 days lisinopril-hydrochlorothiazide 20-25 mg 1 tab PO DAILY 90 days metoprolol succinate ER 25 mg PO ONCE 90 days omeprazole 40 mg PO DAILY sertraline 50 mg PO DAILY 90 days HPI Comments Details: Sierra comes for follow-up. She has been doing well from cardiac perspective. She remains fairly active walks regularly and works in his yd without any exertional symptoms. She recently had a tick bite in his significant rash associated with it. Was treated with 3 weeks with antibiotics with doxycycline. She is denying any joint aches or any other pain but he is worried about Lyme disease. She had a recent echocardiogram showed mildly enlarged thoracic aorta. Otherwise she says a blood pressures been well controlled. She denies any significant palpitations. No lightheadedness, syncope. No exertional chest pain, orthopnea, PND. [facility] Medical History Thoracic aortic aneurysm Celiac disease History of breast cancer Anxiety Depression Hypertension Surgical History S/P lumpectomy of breast H/O bilateral mastectomy History of knee surgery History of cholecystectomy History of tonsillectomy Family History Daughter Mental health disorder Breast cancer Sister Mental health disorder Breast cancer Lung cancer Myocardial infarction Father CAD (coronary artery disease) Myocardial infarction Mother Breast cancer Other Substance abuse Social History Household Members: Children Housing: House Are you a primary outdoor emergency care technician to a significant other at home: No Do you presently have visiting nurse or other home services: No 75 years or older and lives alone: No Alcohol intake: current Alcohol intake frequency: holidays/special occasions only Alcohol type: wine Patient Tobacco Use Status: Former Tobacco user Tobacco use type: Cigarette Cigarette Packs Per Day: 0.5 Cigarettes Per Day: 10 Years Smoked: 2 e-Cigarette/Vaping Use: Never Used Second Hand Smoke Exposure: No service: No Current occupational status: retired Current occupational exposures/hazards: No Sexual orientation: Unable to collect Gender identity: Unable to collect Cognitive needs: No Hearing needs: No Vision needs: No Review of Systems Const Denies chills, Denies fatigue, Denies fever(s), Denies frequent falls, Denies weakness, Denies weight gain and Denies weight loss ENT Denies dizziness Card Denies chest pain, Denies leg edema, Denies lightheadedness, Denies palpitations, Denies dyspnea, Denies dyspnea on exertion, Denies orthopnea and Denies other (loss of consciousness) Resp Denies cough, Denies dyspnea and Denies dyspnea on exertion GI Denies hematochezia and Denies change in stool character Musc Denies abnormal gait, Denies muscle weakness, Denies numbness, Denies radiating pain into limb and Denies tingling Neuro Denies abnormal gait, Denies dizziness, Denies frequent falls, Denies numbness, Denies tingling and Denies weakness Endo Denies fatigue and Denies palpitations Physical Exam Vital Signs: Last Vital Signs Pulse 71 08/29/24 11:01 BP 120/74 08/29/24 11:01 BMI result Body Mass Index 26.5 Const General: healthy appearing and no acute distress Orientation/consciousness: patient oriented x3 HEENT Head: Yes normal to inspection Eyes General: appearance normal, both eyes and all related structures Neck Neck: Yes normal visual inspection Chest Chest palpation & inspection: normal inspection of the chest Resp Effort & Inspection: normal respiratory effort Auscultation: clear to auscultation bilaterally Cardio Jugular venous distension: no JVD Palpation: normal PMI Rate: regular rate Rhythm: regular rhythm Heart sounds: S1 normal heart sound present, S2 normal heart sound present, no click, no gallops, no murmurs and no rubs GI Inspection: Yes normal to inspection Palpation (GI): Soft to palpation Skin General skin exam: no rashes or lesions noted Neuro General: patient oriented x3 Extrem General: Yes normal to inspection Psych Appearance: grossly normal Office Procedures EKG Details: EKG shows normal sinus rhythm with normal EKG [id number], Complete Assessment & Plan Assessment & Plan (1) Thoracic aortic aneurysm: Code(s): I71.20 - Thoracic aortic aneurysm, without rupture, unspecified Category: Medical Qualifiers: Thoracic aorta location: ascending aorta Presence of rupture: without rupture Qualified Code(s): I71.21 - Aneurysm of the ascending aorta, without rupture Plan: Mildly enlarged thoracic aorta which does not require any intervention. Continued aggressive medical therapy and aggressive control blood pressure, see below. Advised to avoid sudden strenuous isometric exercise. Continue with regular physical activity otherwise. Annual follow-up by echocardiogram. Goal obtain a coronary calcium score given her strong family history of premature coronary artery disease to guide further treatment for her mild hyperlipidemia. (2) Hypertension: Comment: Goal is less than 130/80. Ideally less than 120/70. Code(s): I10 - Essential (primary) hypertension Category: Medical Qualifiers: Hypertension type: primary hypertension Qualified Code(s): I10 - Essential (primary) hypertension Plan: Hypertension which is currently well optimized on current therapy with lisinopril hydrochlorothiazide combination along with amlodipine and metoprolol. Importance of good blood pressure control was discussed. Continue current therapy. Advised to monitor blood pressure at home maintain a log. Low-salt diet was discussed. Follow up in the clinic in 1 year's time, sooner p.r.n.. Thank you for allowing me to partake in her care Orders: Orders CT Coronary Calcium Score 1 Week I71.20 - Thoracic aortic aneurysm, without rupture, unspecified Lyme IgG/IgM w/reflex to WB Today W57.XXXA - Bitten or stung by nonvenomous insect and other nonvenomous arthropods, initial encounter CA echo transthoracic complete 1 Year I71.20 - Thoracic aortic aneurysm, without rupture, unspecified Coding Level of Care Code Est Pt Level 4 (37383) Complex EM visit Add On G2211 Diagnoses Aneurysm of ascending aorta without rupture I71.21 Thoracic aorta location: ascending aorta Presence of rupture: without rupture Primary hypertension I10 Hypertension type: primary hypertension CPT Codes EKG - CPT: 04706-[id number], Complete ([id number])
[2024-08-29 11:01] VITALS: BP 120/74; PULSE 71; BMI 26.5
--- OUTSIDE RECORDS SUMMARY | 2024-08-29 11:58 | XMS_ITS | Clinical Summary ---
Author Organization [facility] Address [address] [place] [address] Care Team Providers Care Mandarin Teacher Name Role Phone Douglas Bain MD Primary Care Provider [phone] Allergies No known active allergies Medications Medication [...] 74 05/25/2022 10:01 AM EDT Temperature 36.6 C (97.8 F) 05/25/2022 10:01 AM EDT Respiratory Rate - - Oxygen [...] or Tdap) 11/19/2020 11/19/2010 Influenza Vaccine (#1) 2024 , 11/23/2017, 10/28/2016, Additional history exists RSV Adult [...] age to complete this topic Care Teams Mandarin Teacher Relationship Specialty Start Date End Date Douglas Bain MD [facility] [place] [address] PCP - General Family Medicine 04/27/22
== END 2024-08-29 11:37 | disposition home or self-care (01) ==
LOC: HO.HCS 10:58
PROVIDERS: PCP Family Medicine; Visit Provider Internal Medicine Cardiovascular Disease
DX: I71.21 Aneurysm of the ascending aorta, without rupture (principal); I10 Essential (primary) hypertension
CPT/HCPCS: 93010; 99214

== ENCOUNTER 2024-11-12 10:27 | Outpatient (AMB) | payer OTHER, SELFPAY ==
--- NOTE | 2024-11-12 11:07 | MHC.OFFVIS ---
Intake Visit Reasons: Hypertension Intake Note: Hypertension follow up Allergies gluten Allergy (Severe, Verified 11/12/24 11:07) Diarrhea erythromycin base Adverse Reaction (Mild, Verified 11/12/24 11:07) diarrhea PFSH Medical History Thoracic aortic aneurysm Celiac disease History of breast cancer Anxiety Depression Hypertension Surgical History S/P lumpectomy of breast H/O bilateral mastectomy History of knee surgery History of cholecystectomy History of tonsillectomy Family History Daughter Mental health disorder Breast cancer Sister Mental health disorder Breast cancer Lung cancer Myocardial infarction Father CAD (coronary artery disease) Myocardial infarction Mother Breast cancer Other Substance abuse Social History Household Members: Children Housing: House Are you a primary family day carer to a significant other at home: No Do you presently have visiting nurse or other home services: No 75 years or older and lives alone: No Alcohol intake: current Alcohol intake frequency: holidays/special occasions only Alcohol type: wine Patient Tobacco Use Status: Former Tobacco user Tobacco use type: Cigarette Cigarette Packs Per Day: 0.5 Cigarettes Per Day: 10 Years Smoked: 2 e-Cigarette/Vaping Use: Never Used Second Hand Smoke Exposure: No service: No Current occupational status: retired Current occupational exposures/hazards: No Sexual orientation: Unable to collect Gender identity: Unable to collect Cognitive needs: No Hearing needs: No Vision needs: No Coding
[2024-11-12 11:11] VITALS: BP 114/64; PULSE 59; RESP 12; TEMP 36.8; O2SAT 97; BMI 25.8
--- NOTE | 2024-11-12 11:11 | A.OFFPC_ITS ---
Vital Signs 11/12/24 11:11 Height 5 ft 4 in Weight 150 lb 8 oz BMI 25.8 BP 114/64 Blood Pressure Location Rt brachial Position Sitting Respiration 12 Pulse 59 Pulse Source Pulse Oximeter Temp 98.2 F Temp Source Oral Pulse Oximetry (%) 97 Oxygen Delivery Method Room Air Intake Visit Reasons: Hypertension Allergies gluten Allergy (Severe, Verified 11/12/24 11:07) Diarrhea erythromycin base Adverse Reaction (Mild, Verified 11/12/24 11:07) diarrhea Tobacco use date assessed: 03/25/23 Dental Screening Dental Screen Date: 03/25/23 HPI HPI Comments History of Present Illness Details This is a 63 year old female with a past medical history of hypertension, TAA, anxiety/depression presenting for follow up CV: Following with cardiology. UTD with monitoring. Last echo 4.7cm. On lisionpril-hctz 20-25mg, amlodipine 5md daily, metoprolol 25mg daily. Blood pressure controlled. Has had two episodes where she has developed shortness of breath and palpitations. If it happens again she would consider getting a heart monitor but declines at the moment. Depression/Anxiety: On sertraline 50mg daily. Lots of life stressors. Was following with Dr Dietrich. Daughter from breast cancer. Daughter recently had perforated appendicitis. a few years ago from bile duct cancer. Sister has alzeihmers and just found out she has a massive kidney tumor. 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 Has appointment scheduled Mammo:s/p mastectomy Colon cancer screenin08/2023-double endoscopy 10 years [facility] ROS CONSTITUTIONAL: Denies weight loss, fever and chills. HEENT: Denies changes in vision and hearing. RESPIRATORY: Denies SOB and cough. CV: Denies palpitations and CP GI: Denies abdominal pain, nausea, vomiting and diarrhea. : Denies dysuria and urinary frequency. MSK: Denies new myalgia and joint pain. SKIN: Denies rash and pruritus. NEUROLOGICAL: Denies headache PSYCHIATRIC: Denies recent changes in mood. PHYSICAL EXAM: GENERAL: Alert and oriented x 3. NAD EYES: EOMI. Anicteric. HENT: Moist mucous membranes. No scleral injection LUNGS: Clear to auscultation bilaterally. CARDIOVASCULAR: Regular rate and rhythm. No murmur. No JVD. ABDOMEN: Soft, non-tender +bs EXTREMITIES: No edema. Non-tender. SKIN: No rashes or lesions. Warm. NEUROLOGIC: No focal neurological deficits. CN II-XII grossly intact PSYCHIATRIC: Cooperative. Appropriate mood and affect [facility] Medical History Thoracic aortic aneurysm Celiac disease History of breast cancer Anxiety Depression Hypertension Surgical History S/P lumpectomy of breast H/O bilateral mastectomy History of knee surgery History of cholecystectomy History of tonsillectomy Family History Daughter Mental health disorder Breast cancer Sister Mental health disorder Breast cancer Lung cancer Myocardial infarction Father CAD (coronary artery disease) Myocardial infarction Mother Breast cancer Other Substance abuse Social History (Updated 11/12/24 @ 11:12 by Silvana Keith CMA) Household Members: Children Housing: House Are you a primary transitional care nurse to a significant other at home: No Do you presently have visiting nurse or other home services: No 75 years or older and lives alone: No Alcohol intake: current Alcohol intake frequency: holidays/special occasions only Alcohol type: wine Patient Tobacco Use Status: Former Tobacco user Tobacco use type: Cigarette Cigarette Packs Per Day: 0.5 Cigarettes Per Day: 10 Years Smoked: 2 e-Cigarette/Vaping Use: Never Used Second Hand Smoke Exposure: No service: No Current occupational status: retired Current occupational exposures/hazards: No Sexual orientation: Unable to collect Gender identity: Unable to collect Cognitive needs: No Hearing needs: No Vision needs: No Questionnaire PHQ-9 Over the last 2 weeks, how often have you been bothered by any of the following problems? 1. Little interest or pleasure in doing things: not at all 2. Feeling down, depressed, or hopeless: not at all 3. Trouble falling or staying asleep, or sleeping too much: not at all 4. Feeling tired or having little energy: not at all 5. Poor appetite or overeating: not at all 6. Feeling bad about yourself - or that you are a failure or have let yourself or your family down: not at all 7. Trouble concentrating on things, such as reading the newspaper or watching television: not at all 8. Moving or speaking so slowly that other people could have noticed. Or the opposite - being so fidgety or restless that you have been moving around a lot more than usual: not at all 9. Thoughts that you would be better off or of hurting yourself in some way: not at all Total score: 0 Depression Screening Interpretation: Negative Depression Screening Done: Yes 61693 - PHQ-9 Billing: Yes Source: Developed by Drs. Jhony Ann, Yessica Roldan, Rafael Camacho and colleagues, with an educational arian from [employer]. Thrive Questionnaire Date Thrive assessed: 11/05/24 I am a: Patient What is your living situation today?: I have a steady place to live Within the past 12 months, did the food you bought not last and you didn't have the money to get more?: Never true Within the past 12 months, did you worry whether your food would run out before you got money to buy more?: Never true Do you have trouble paying for medicines?: No Do you have trouble getting transportation to medical appointments?: No Do you have trouble paying your heating and electricity bill?: No Do you have trouble taking care of your child, family member or friend?: No Do you have trouble with day-to-day activities such as bathing, preparing meals, shopping, managing finances, etc.?: No Are you currently unemployed and looking for a job?: No Are you interested in more education?: No Please select the resources that you would like help with: None Currently or been in a relationship where the following occur: No concerns reported THRIVE Score: 0 AUDIT C Alcohol Use Questionnaire (AUDIT-C) 1. How often do you have a drink containing alcohol?: 2-4 times a month 2. How many drinks containing alcohol do you have on a typical day when you are drinking?: 1 or 2 3. How often do you have six or more drinks on one occasion?: Never Total Score: 2 INA-7 AMB Questionnaire INA-7 Date INA - 7 assessed: 05/08/24 Feeling nervous, anxious, or on edge: 0 = Not at all Not being able to stop or control worryin = Not at all Worrying too much about different things: 0 = Not at all Trouble relaxin = Not at all Being so restless that it is hard to sit still: 0 = Not at all Becoming easily annoyed or irritable: 0 = Not at all Feeling afraid as if something awful might happen: 0 = Not at all Total INA-7 score (0-4 normal; 5-9 mild; 10-14 moderate; 15-21 severe): 0 Source: Developed by Drs. Jhony Ann, Yessica Roldan, Rafael Camacho and colleagues, with an educational arian from [employer]. Physical exam (Primary Care) Vital Signs: Last Vital Signs Temp 98.2 F 11/12/24 11:11 Pulse 59 11/12/24 11:11 Resp 12 11/12/24 11:11 BP 114/64 11/12/24 11:11 Pulse Ox 97 11/12/24 11:11 Oxygen Delivery Method Room Air 11/12/24 11:11 BMI result Body Mass Index 25.8 Tobacco/Smoking Status: Tobacco use Status Tobacco use date assessed 03/25/23 11/12/24 11:12 Patient Tobacco Use Status Former Tobacco user 11/12/24 11:12 Tobacco use type Cigarette 11/12/24 11:12 e-Cigarette/Vaping Use Never Used 11/12/24 11:12 Depression Screening Interpretation: Negative Thrive Assessment: Date of Thrive Assessment Date Thrive assessed 11/05/24 11/12/24 11:12 Currently or been in a relationship where the following occur: No concerns reported Coding Level of Care Code Est Pt Level 4 (85707) Complex EM visit Add On G2211 Diagnoses Depression with anxiety F41.8 Primary hypertension I10 Hypertension type: primary hypertension Thoracic aortic aneurysm without rupture, unspecified part I71.20 Thoracic aorta location: unspecified Presence of rupture: without rupture Additional Codes PHQ-9 - 85711 - PHQ-9 Billing: Yes ([id number]) Assessment & Plan Assessment & Plan (1) Depression with anxiety: Code(s): F41.8 - Other specified anxiety disorders Category: Medical (2) Hypertension: Code(s): I10 - Essential (primary) hypertension Category: Medical Qualifiers: Hypertension type: primary hypertension Qualified Code(s): I10 - Essential (primary) hypertension (3) Thoracic aortic aneurysm: Comment: followed by cardiology--no surgical intervention needed at this time as of 08/25/23 Code(s): I71.20 - Thoracic aortic aneurysm, without rupture, unspecified Category: Medical Qualifiers: Thoracic aorta location: unspecified Presence of rupture: without rupture Qualified Code(s): I71.20 - Thoracic aortic aneurysm, without rupture, unspecified Plan 64 year old for follow up HTN is well controlled on current medications Depression & anxiety are stable. Labs ordered Orders: Orders Comprehensive Met. Panel 11/12/24 F32.9 - Major depressive disorder, single episode, unspecified, I10 - Essential (primary) hypertension, R53.83 - Other fatigue, R73.09 - Other abnormal glucose Complete Blood Count Auto Diff 11/12/24 F32.9 - Major depressive disorder, single episode, unspecified, I10 - Essential (primary) hypertension, R53.83 - Other fatigue, R73.09 - Other abnormal glucose Lipid Panel 11/12/24 F32.9 - Major depressive disorder, single episode, unspecified, I10 - Essential (primary) hypertension, R53.83 - Other fatigue, R73.09 - Other abnormal glucose TSH reflex Free T4 11/12/24 F32.9 - Major depressive disorder, single episode, unspecified, I10 - Essential (primary) hypertension, R53.83 - Other fatigue, R73.09 - Other abnormal glucose Medications: New omeprazole 40 mg PO DAILY 90 caps 3RF Refilled amlodipine 5 mg PO DAILY 90 tabs 3RF 90 days ibuprofen 800 mg PO TID 270 tabs 3RF 90 days lisinopril-hydrochlorothiazide 20-25 mg 1 tab PO DAILY 90 tabs 3RF 90 days sertraline 50 mg PO DAILY 90 tabs 3RF 90 days
--- OUTSIDE RECORDS SUMMARY | 2024-11-12 12:19 | XMS_ITS | Clinical Summary ---
Author Organization [facility] Address [address] [place] [address] Care Team Providers Care Director Government Name Role Phone Douglas Bain MD Primary Care Provider [phone] Allergies No known active allergies Medications Medication [...] age to complete this topic Care Teams Director Government Relationship Specialty Start Date End Date Douglas Bain MD [facility] [place] [address] PCP - General Family Medicine 04/27/22
--- OUTSIDE RECORDS SUMMARY | 2024-11-12 12:19 | XMS_ITS | Encounter Summary ---
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
== END 2024-11-12 11:40 | disposition home or self-care (01) ==
LOC: HO.HMCFM 10:28
PROVIDERS: PCP Internal Medicine; Visit Provider Internal Medicine
DX: F41.8 Other specified anxiety disorders (principal); I10 Essential (primary) hypertension; I71.20 Thoracic aortic aneurysm, without rupture, unspecified

== ENCOUNTER → 2024-11-12 10:27 | Outpatient (BNVA) | payer OTHER, SELFPAY | PROVIDERS: PCP Internal Medicine; Visit Provider Internal Medicine | DX: F41.8 Other specified anxiety disorders (principal); I10 Essential (primary) hypertension; I71.20 Thoracic aortic aneurysm, without rupture, unspecified; Z13.31 Encounter for screening for depression | CPT/HCPCS: 96127; 99212 ==